=== PATIENT | male | born 1980 | race Caucasian/White ===

== ENCOUNTER 2017-10-02 06:07 | Day surgery (SDC) | payer OTHER, SELFPAY ==
[2017-10-02 06:33] VITALS: BP 124/73; PULSE 82; RESP 16; TEMP 37; O2SAT 99; BMI 31.0
--- NOTE | 2017-10-02 07:37 | PCM.HP.STD ---
Problem List (1) Personal history of colonic polyps Status: Acute History of Present Illness Date of Admission: 10/02/17 The patient is a 37 year old M with past medical history of colon polyps. I saw him on 09/23/2014 and perform a colonoscopy on him. He was noted to have several polyps located throughout the colon a 10 mm one at the cecum 8 mm one in the sigmoid and a 3 mm colon polyp since then he has not had any further problems. Past Medical History Past Medical History (Chronic Problems): Chronic Problems (Last Reviewed 08/28/17 @ 07:54 by Asher Khan MD) Chronic abdominal pain (Chronic) Allergies No Known Allergies Allergy (Verified 08/28/17 07:50) Home Medications: Ambulatory Orders Medication Instructions Recorded ranitidine 300 mg tablet 300 mg PO QHS 08/28/17 Surgical History: appendectomy, cholecystectomy, herniorrhaphy Psychiatric History: No pertinent psych hx Smoking Status: Never smoker - *Family History Maternal History Items: Heart Disease Review of Systems Constitutional: Denies: Chills, Fever, Weight Change Eyes: Denies: Blurred vision, Pain, Redness, Vision Change HEENT: Denies: Dysphasia, Ear Pain, Eye Pain, Head Aches, Hearing Changes, Sore Throat Cardiovascular: Denies: Chest Pain, Chest Pressure, Chest Tightness, Palpitations Respiratory: Denies: Cough, Hemoptysis, Shortness of breath at rest, Shortness of breath upon exertion, Wheezing Gastrointestinal: Denies: Abdominal Pain, Constipation, Diarrhea, Hematemesis, Nausea, Melena, Vomiting Genitourinary: Denies: Dysuria, Frequency, Hematuria, Urgency Musculoskeletal: Denies: Joint Pain Skin: Denies: Lesions, Rash, Wounds Neurological: Denies: Change in Speech, Confusion, Numbness, Tingling, Seizures Psychiatric: Denies: Anxiety, Depression Endocrine: Denies: Heat/ Cold Intolerance, Polydipsia, Polyuria Hematologic/ Lymphatic: Denies: Adenopathy, Easy Bruising VTE Information - Inpt Only VTE Present on Admission: No VTE Mechan Device Prophylaxis: None VTE Pharm Prophylaxis ordered?: No Reason prophylaxis not ordered:: Treatment Not Indicated Patient Problems: Active and Suspected Problems (Last Reviewed 08/28/17 @ 07:54 by Asher Khan MD) Personal history of colonic polyps (Acute) - Physical Exam Lungs: Clear to auscultation Cardiovascular: Regular rate, Regular Rhythm, No murmurs Abdomen: Bowel Sounds Present, Soft, Non Tender, Non-Distended Vital Signs Temp Pulse Resp BP Pulse Ox 98.6 F 82 16 124/73 H 99 10/02/17 06:33 10/02/17 06:33 10/02/17 06:33 10/02/17 06:33 10/02/17 06:33 Oxygen Delivery Method Room Air Weight: 228 lb 13.437 oz Body Mass Index (BMI) 31.0 Assessment/Plan Active and Suspected Problems (Last Reviewed 08/28/17 @ 07:54 by Asher Khan MD) Personal history of colonic polyps (Acute) The plan is to perform a colonoscopy on him.
[2017-10-02 07:40] VITALS: BP 117/70; BP 123/74; PULSE 77; RESP 16; TEMP 36.2; O2SAT 94
--- NOTE | 2017-10-02 07:40 | PCM.OPRPT ---
Problem List (1) Personal history of colonic polyps Status: Acute Report of Operation Date of Procedure: 10/02/17 Pre-Operative Diagnosis: z86.010 personal history of colonic polyps Post-Operative Diagnosis: Same Surgery/Procedure Performed:: [id number] colonoscopy Type of Anesthesia:: MAC Anesthesiologist: Fernando Mcgraw Description of Procedure: Patient was brought into the endoscopy suite and placed in the left lateral decubitus position. He was given graded anesthesia. Colonoscope was inserted into the rectum and directed through the sigmoid colon, descending colon, transverse colon, ascending colon, to the cecum. Operative findings: 1. Cecum: Normal appearance no mass lesions normal ileocecal valve. 2. Ascending colon: Normal appearance no mass lesions 3. Transverse colon: Normal appearance no mass lesions. 4. Descending colon: Normal appearance no mass lesions. 5. Sigmoid colon: Normal appearance no mass lesions. 6. Rectum: Normal appearance no mass lesions retroflexion showed a few internal hemorrhoids. Scope was withdrawn digital rectal exam was performed showing a smooth prostate with no nodules and no masses within the anus. Patient will need to have another colonoscopy in 10 years.
--- NOTE | 2017-10-02 07:44 | OP.PCM_ITS ---
Problem List (1) Personal history of colonic polyps Status: Acute Report of Operation Date of Procedure: 10/02/17 Pre-Operative Diagnosis: z86.010 personal history of colonic polyps Post-Operative Diagnosis: Same Surgery/Procedure Performed:: [id number] colonoscopy Type of Anesthesia:: MAC Anesthesiologist: Fernando Mcgraw Description of Procedure: Patient was brought into the endoscopy suite and placed in the left lateral decubitus position. He was given graded anesthesia. Colonoscope was inserted into the rectum and directed through the sigmoid colon, descending colon, transverse colon, ascending colon, to the cecum. Operative findings: 1. Cecum: Normal appearance no mass lesions normal ileocecal valve. 2. Ascending colon: Normal appearance no mass lesions 3. Transverse colon: Normal appearance no mass lesions. 4. Descending colon: Normal appearance no mass lesions. 5. Sigmoid colon: Normal appearance no mass lesions. 6. Rectum: Normal appearance no mass lesions retroflexion showed a few internal hemorrhoids. Scope was withdrawn digital rectal exam was performed showing a smooth prostate with no nodules and no masses within the anus. Patient will need to have another colonoscopy in 10 years.
[2017-10-02 07:45] VITALS: BP 111/75; BP 123/74; PULSE 73; RESP 18; O2SAT 95
[2017-10-02 07:50] VITALS: BP 108/73; BP 123/74; PULSE 71; RESP 16; O2SAT 94
[2017-10-02 07:56] VITALS: BP 106/78; BP 123/74; PULSE 68; RESP 16; TEMP 36.9; O2SAT 95
[2017-10-02 08:17] VITALS: BP 123/74
== END 2017-10-02 08:18 | disposition home or self-care (01) ==
LOC: EN 06:07 → AC 06:30
PROVIDERS: Family Provider Family Medicine; PCP Family Medicine; Visit Provider Surgery
PROC: 0DJD8ZZ Inspection of Lower Intestinal Tract, Via Natural or Artificial Opening Endoscopic (ICD-10-PCS; CPT 45378; principal; 2017-10-02 07:25)
DX: Z12.11 Encounter for screening for malignant neoplasm of colon (principal); K64.8 Other hemorrhoids; R10.9 Unspecified abdominal pain; G89.29 Other chronic pain; K21.9 Gastro-esophageal reflux disease without esophagitis; Z79.899 Other long term (current) drug therapy; Z86.010 Personal history of colon polyps; Z90.49 Acquired absence of other specified parts of digestive tract
CPT/HCPCS: 45378; J7120

== ENCOUNTER 2018-06-12 15:46 | Emergency (ER) | payer OTHER, SELFPAY ==
[2018-06-12 15:47] VITALS: BP 134/96; PULSE 84; RESP 16; TEMP 36.7; O2SAT 98; BMI 32.8
--- NOTE | 2018-06-12 15:57 | RAD_ITS ---
STUDY: X-RAY CHEST REASON FOR EXAM: Male, 38 years old. Chest/epigastric pain x 1 week. TECHNIQUE: AP portable upright view of the chest on 2 films. COMPARISON: Portable AP upright chest x-ray April 03, 2016. FINDINGS: The lungs are clear and expanded. There is no demonstrated pleural abnormality. Normal size heart. Normal mediastinum and christiano. Normal visualized pulmonary arteries. Normal visualized aortic arch and descending thoracic aorta. Normal visualized thoracic spine. Normal visualized ribs, clavicles, and shoulders. There is no demonstrated abnormality of the visualized soft tissue structures of the upper abdomen. RAD/Chest 1 View (Portable) IMPRESSION: Normal x-ray examination of the chest. Electronically Signed: Jose Enrique Pappas MD at 16:16 EST , Service support ,
--- NOTE | 2018-06-12 15:57 | EKG12_ITS ---
Test Reason : CP Blood Pressure : / mmHG Vent. Rate : 089 BPM Atrial Rate : 089 BPM P-R Int : 156 ms QRS Dur : 100 ms QT Int : 368 ms P-R-T Axes : 039 028 021 degrees QTc Int : 447 ms Normal sinus rhythm Normal ECG Confirmed by TONYA ECHEVARRIA MD ([id number]), development editor BUSTER PABON ([id number]) on 06/15/2018 1:42:45 PM Referred By: SERGEY Confirmed By:TONYA ECHEVARRIA MD
--- NOTE | 2018-06-12 16:09 | ED.DCSUM_ITS ---
- ER Visit Summary Date of Service: 06/12/18 Chief Complaint: Chest pain, indigestion History of Present Illness: The patient is a 38 M with history of paroxysmal atrial fibrillation presents to the emergency department with indigestion. Patient states he has been having indigestion for the past 5 days. He states his been rather constant. He states that he was out hunting over the weekend with just would not go away. He called his primary care physician. He states because of his history, his family physician told to come in for cardiac rule out. He denies any history of coronary vascular disease. He denies any exertional symptoms. He said no dyspnea. The pain does not radiate into his neck or his arm. Physical Examination: Vital signs reviewed General: Well-nourished, well-developed Head: Normocephalic, atraumatic Eyes: Pupils equal and reactive, extraocular muscles intact Neck, supple, no lymphadenopathy Heart: Regular rate and rhythm Respiratory: No distress, clear bilaterally Abdomen: Soft, nontender, nondistended, no peritoneal signs Back: Nontender Extremities: Nontender, no edema, no cords Skin: Normal color no rash Neuro: Alert and oriented, no focal or lateralizing deficits Test Results: [] Emergency Department Course and Treatment: EKG was obtained on patient arrival. It shows sinus rhythm without acute ischemia. His old EKG was atrial fibrillation with RVR. Patient was kept on a monitor. He had no dysrhythmia. He was given aspirin in the GI cocktail. He had resolution of his substernal pain. His pain is not radiating. He really has no risk factor for coronary vascular disease. He is a constant pain for 5 days. His cardiac enzymes are normal. The patient is already scheduled for an outpatient stress test and Holter monitor. I do not feel that admission is necessary given his lack of symptoms and low heart score. He is comfortable with this plan of care and will be discharged home. Treatment Plan: [] Disposition: Discharge Impression: 1. Chest pain This note was generated with [employer] dictation software. It may contain incorrect words, spelling, and punctuation that were not noted in review of the chart prior to signing ED Disposition - Plan for ED Patient: Chief Complaint: Chest Pain Instructions: ED Chest Pain NonCardiac Referrals: Yobani Rosario MD [Primary Care Provider] -
[2018-06-12 16:11] VITALS: O2SAT 97
[2018-06-12] MEDS: Aspirin 81 MG TAB.CHEW 324 MG PO (16:26)
[2018-06-12] MEDS: Mag Hydrox/Al Hydrox/Simeth 30 ML UDC PO (16:26)
[2018-06-12] MEDS: 0.9% Normal Saline 1,000 ML 150 ML IV (16:26)
[2018-06-12 16:42] LABS: Absolute Lymphocyte Count 2.23 X10^3/ul (0.83-4.51); Absolute Neutrophil Count 4.5 X10^3/uL (2.0-7.7); Anion Gap 8 (5-15); BUN 12 mg/dL (7-18); BUN/Creat Ratio 11.7 RATIO (10-20); Basophil# 0.02 X10^3/uL; Basophil% 0.3 % (0-1); Calcium,Total 8.8 mg/dL (8.5-10.1); Chloride 108 mmol/L (98-107); Creatinine, Serum 1.03 mg/dL (0.70-1.30); EST Glomerular Filtration Rate 86 mL/min (>60); Eosinophil# 0.12 X10^3/uL; Eosinophils% 1.6 % (0-5); Est Glom Filt Rate - Afr Amer 104 mL/min (>60); Estimated Creatinine Clearance 106.73 ml/min; Glucose 91 mg/dL (74-106); Hematocrit 46.6 % (40-54); Hemoglobin 15.9 g/dl (13.0-16.5); Lymphocyte # 2.23 X10^3/ul (4.0); Lymphocyte % 30.1 % (19-41); Mean Corp Hgb Conc 34.1 g/gl (32-36); Mean Corpuscular Hgb 29.1 pg (27.0-32.0); Mean Corpuscular Volume 85.2 fL (80-94); Mean Platelet Vol. 9.3 fl (6.2-12.0); Monocyte# 0.51 X10^3/uL; Monocyte% 6.9 % (0-10); Neutrophil # 4.51 X10^3/uL (2.7-7.7); Platelet Count 248 K/mm3 (150-450); Potassium 3.3 mmol/L (3.5-5.1); RBC Distribution Width CV 12.2 % (11.6-14.6); Red Blood Count 5.47 M/mm3 (4.6-6.2); Sodium Level 141 mmol/L (136-145); White Blood Count 7.4 K/mm3 (4.4-11.0)
[2018-06-12 16:45] LABS: POSITIVE COUNT NO; POSITIVE DIFFERENTIAL NO; POSITIVE MORPHOLOGY NO
[2018-06-12 17:27] VITALS: BP 128/84; PULSE 83; RESP 17; O2SAT 97
[2018-06-12 18:04] VITALS: BP 140/97; PULSE 77; RESP 16; O2SAT 95
--- OUTSIDE RECORDS SUMMARY | 2018-09-14 05:04 | XMS RPT_ITS ---
:1980 Author Organization [facility] Care Team Providers Name Role Phone HERNÁN KANG ([employer]) Attending Unavailable CEBUL III, SAVAGE A Attending Unavailable CRICKET HARRIS (PA) Attending Unavailable KARISSA SALES Attending Unavailable HERNÁN KANG ([employer]) Referring Unavailable ОЛЬГА SAN (IN TUBE CONVERSION TECHNICIAN) Attending Unavailable KARISSA SALES Referring Unavailable Jaclyn POSEY (PA-C) Referring Unavailable CRICKET HARRIS (PA) Attending Unavailable ОЛЬГА SAN (IN TUBE CONVERSION TECHNICIAN) Attending Unavailable KARISSA SALES Attending Unavailable KARISSA SALES Referring Unavailable KARISSA SALES Attending Unavailable DOROTHY CHESTER ([employer]) Attending Unavailable KARISSA SALES Referring Unavailable KARISSA SALES Referring Unavailable Karissa Sales Primary Care Unavailable Yoshi Norman Attending Unavailable Asher Khan Attending Unavailable Karissa Sales Referring Unavailable Karissa Sales Primary Care Unavailable Asher Khan Attending Unavailable Asher Khan Referring Unavailable Karissa Sales Primary Care Unavailable Asher Khan Attending Unavailable Asher Khan Referring Unavailable Karissa Sales Primary Care Unavailable Asher Khan Consulting Unavailable PROBLEMS PROBLEMS DATE TYPE CONDITION / CODE ATTENDING STATUS SOURCE 06/25/2018 Active Tachycardia, NA Active [facility] unspecified / Other [place] R00.0(ICD-10) Repository 06/25/2018 Active 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 [place] block / Repository I45.10(ICD-10) 10/09/2016 Active Hyperlipidemia, NA Active [facility] unspecified / Main [place] E78.5(ICD-10) Repository 03/04/2016 Active Encounter for NA Active [facility] screening for Main [place] diabetes mellitus Repository / Z13.1(ICD-10) 12/12/2017 Active Other abnormal NA Active [facility] glucose / Main [place] R73.09(ICD-10) Repository 12/12/2017 Active Unspecified NA Active [facility] abdominal pain / Main [place] R10.9(ICD-10) Repository 10/30/2017 Unknown Z12.11 - Asher Khan Active [place] Encounter for Community screening for Hospital malignant Repository neoplasm of colon / Z12.11(ICD-10) 07/16/2018 Unknown Z86.010 - Asher Khan Active [place] Personal history Community of colonic polyps [facility] / Z86.010(ICD-10) Repository 08/08/2017 Active Unknown / [place], Active [facility] UNK(Unknown) HERNÁN Graves ([facility]) Main [place] Repository PROCEDURES PROCEDURES No Procedure Records FoundRESULTS RESULTS CNOV Observed: 07/16/2018 Status: COMPLETED Source: [place] 11:40 AM [facility] REPOSITORY Office Visit (FAMPWS) ASHER MCCAULEY ([id number]) 1980 M Date Time Provider Department 07/16/18 11:40 AM DOROTHY CHESTER ([facility]) MANJINDER During your visit today, we recorded the following information about you: Temperature Pulse Blood pressure Weight 97.8 degrees 92/minute 106/77 110.2 kg Dorothy Chester APRN.CNP 07/16/2018 11:50 AM Signed Chief Complaint Patient presents with: Rash: right leg - no itching, no pain , not worse or better HPI Asher Mccauley is a 38 year old male who presents here today for Above Complaints.. Patient presents to the office for complaints of a rash. Location is right lower leg. Denies any pruritus or pain. States that this was present at his last OB appointment with Dr. Sales on 06/11/2018. States that the area is no better and no worse. No drainage, erythema, fevers, chills. Area has not increased in size. Patient had been applying some lotion to it but did not see any improvement. Past medical history, appointments, medications, allergies reviewed. Previous Medical History PAST MEDICAL HISTORY Diagnosis Date - Dyslipidemia 10/09/2016 - GERD (gastroesophageal reflux disease) - Obesity - Rectal bleeding 09/23/2014 - Seasonal allergies 03/04/2016 Previous Surgical History PAST SURGICAL HISTORY Procedure Laterality Date - COLONOSCOPY 10/02/2017 Dr. Khan, repeat 10 yrs MAC - COLONS W/REM POLYP HT BX 09/23/2014 Repeat 2018 - EGD W/O OR W/BRUSH/WASH 02/04/15 EGD - LAPAROSCOPIC CHOLEYCYSTECTOMY 04/06/2016 - LAPAROSCOPY, SURGICAL, APPENDECTOMY 02/10/14 with umbilical hernia and appendix - PAST SURGICAL HISTORY OF wisdom teeth Family History FAMILY HISTORY Problem Relation Age of Onset - Asthma Mother - Allergies Mother - Breast Cancer Paternal Grandmother - Cancer Maternal Grandfather pancreatic - Cancer Maternal Grandmother pancreatic - Coronary Artery Disease No Family History - Hypertension No Family History - Hyperlipidemia No Family History Patient Allergies ALLERGIES Allergen Reactions - Clindamycin Diarrhea - Seasonal Allergies Other: See Comments Symptoms vary Current Medications Current Outpatient Prescriptions on File Prior to Visit: omeprazole (PRILOSEC) 20 mg capsule Take 1 capsule by mouth daily before breakfast. 1/2 hr before meal. hyoscyamine (LEVSIN) 0.125 mg tablet Take 1 tablet by mouth twice daily before meals. ranitidine (ZANTAC) 150 mg tablet Take 1 tablet by mouth twice daily as needed. cyclobenzaprine (FLEXERIL) 10 mg tablet Take 1 tablet by mouth three times daily as needed. naproxen (NAPROSYN) 500 mg tablet Take 1 tablet by mouth twice daily as needed (for pain/inflammation). Take with food. sucralfate (CARAFATE) 1 gram tablet Take with a swallow of water. Wait at least 30 minutes before eating/drinking. loratadine (CLARITIN) 10 mg tablet Take 1 tablet by mouth once daily. ondansetron (ZOFRAN) 8 mg tablet Take 1 tablet by mouth every 8 hours as needed. Loperamide HCl (IMODIUM A-D) 2 mg tab Take 2 tabs po x1 now and then take 1 tab po after each loose stool. No current facility-administered medications on file prior to visit. Social History Social History Marital status: Single Spouse name: Years of education: Number of children: 1 Social History Main Topics Smoking status: Never Smoker Smokeless tobacco: Never Used Alcohol use: Yes Comment: seldom Drug use: No REVIEW OF SYSTEMS: as above ? Reviewed relevant PMHx, PSHx, Social Hx, current medications and allergies. EXAM: BP 106/77 Pulse 92 Temp 36.6 ?C (97.8 ?F) (Tympanic) Wt 110.2 kg (243 lb) BMI 32.96 kg/m? General Appearance: Well appearing, alert, in no acute distress, well-hydrated, well nourished.. Skin: multiple small areas on the anterior portion of the right pike without any drainage, elevation, erythema. some lichenification present. Health Maintenance List LIPID SCREEN due on 12/12/2022 DTAP,TDAP,TD(2 - Td) due on 03/04/2026 COLORECTAL CANCER SCREENING,SEE MODIFIER due on 10/03/2027 INFLUENZA Completed Data reviewed Component Latest Ref Rng AND Units 12/12/2017 Protein, Total 6.3 - 8.0 g/dL 6.7 Albumin 3.9 - 4.9 g/dL 4.3 Calcium 8.5 - 10.2 mg/dL 9.1 Bilirubin, Total 0.2 - 1.3 mg/dL 0.9 Alkaline Phosphatase 36 - 108 U/L 59 AST 14 - 40 U/L 19 Glucose 74 - 99 mg/dL 94 BUN 9 - 24 mg/dL 15 Creatinine 0.73 - 1.22 mg/dL 1.03 Sodium 136 - 144 mmol/L 141 Potassium 3.7 - 5.1 mmol/L 4.0 Chloride 97 - 105 mmol/L 103 CO2 22 - 30 mmol/L 25 Anion Gap 9 - 18 mmol/L 13 ALT 10 - 54 U/L 16 eGFR- >60 eGFR-All Other Races . >60 Color Yellow Yellow Clarity Clear Clear Glucose, Urine Negative mg/dL Negative Bilirubin, Urine Negative Negative Ketones, Urine Negative Negative Specific [place], Ur 1.005 - 1.030 1.021 Hemoglobin/Blood,Ur Negative Negative pH, Urine 4.5 - 8.0 5.0 Protein, Urine Negative mg/dL Negative Urobilinogen Normal Normal Nitrites Negative Negative Leukest Negative Negative Comments SEE COMMENT Urine Thor Comment SEE COMMENT WBC, Urine 0 - 5 /HPF 0-5 RBC, Urine 0 - 3 /HPF 0-3 Cholesterol, Total <200 mg/dL 142 Triglyceride <150 mg/dL 136 HDL Cholesterol >39 mg/dL 35 (L) LDL Cholesterol <100 mg/dL 80 Non HDL Cholesterol <130 mg/dL 107 Fasting Time hrs 12 VLDL Cholesterol <30 mg/dL 27 TC:HDL Ratio <5.10 4.06 LDL:HDL Ratio <2.54 2.29 Hemoglobin A1C 4.3 - 5.6 % 5.4 Estimated Average Glucose mg/dL 108 Lipase 16 - 61 U/L 19 Amylase 30 - 104 U/L 44 ASSESSMENT/PLAN: 1. Eczema, unspecified type - ICD9: 692.9, ICD10: L30.9 - Topical steriod tx with Rx for steriod cream/ointment- see orders - discussed skin care of rash - follow up if symptoms persist or worsen. - TRIAMCINOLONE ACETONIDE 0.025 % TOPICAL OINTMENT Dorothy Chester APRN.[employer] Referring Provider: SELF [[id number]] Allergies As of Date: 07/16/2018 Noted Allergy Reaction CLINDAMYCIN 10/07/2017 6 - Diarrhea SEASONAL ALLERGIES 03/04/2016 14 - Other: See Comments Comments: Symptoms vary Date Reviewed: 07/16/2018 Reviewed by: Shaye Prieto Transformation Coach - Fully Assessed Reason for Visit: Rash [1087] Cmt: right leg - no itching, no pain , not worse or better Primary Visit Diagnosis:Eczema, unspecified type [L30.9] Order(s):triamcinolone (KENALOG) 0.025 % ointmentApply 1 application to affected area twice daily.Disp: 15 gRfl: 1 Prescriptions as of 07/16/2018 Sig: OMEPRAZOLE 20 MG CAPSULE,THOMAS* Take 1 capsule by mouth daily* HYOSCYAMINE SULFATE 0.125 MG * Take 1 tablet by mouth twice * RANITIDINE 150 MG TABLET Take 1 tablet by mouth twice * CYCLOBENZAPRINE 10 MG TABLET Take 1 tablet by mouth three * NAPROXEN 500 MG TABLET Take 1 tablet by mouth twice * SUCRALFATE 1 GRAM TABLET Take with a swallow of water* LORATADINE 10 MG TABLET Take 1 tablet by mouth once d* ONDANSETRON HCL 8 MG TABLET Take 1 tablet by mouth every * LOPERAMIDE 2 MG TABLET Take 2 tabs po x1 now and the* TRIAMCINOLONE ACETONIDE 0.025* Apply 1 application to affect* Problem List As Of Date 07/16/2018 Noted Resolved GERD (gastroesophageal reflux disease) [K21.9] INVALID FOR* Obesity, unspecified [E66.9] INVALID FOR* Seasonal allergies [J30.2] INVALID FOR* Decreased hearing of left ear [H91.92] INVALID FOR* More... Well adult exam [Z00.00] INVALID FOR* More... Multiple lipomas [D17.9] INVALID FOR* More... Encounter for screening for diabetes mellitus [*INVALID FOR* Elevated blood-pressure reading without diagnos*INVALID FOR* Dyslipidemia [E78.5] INVALID FOR* RBBB [I45.10] INVALID FOR* Prescriptions ordered this encounter Disp Refills Start End TRIAMCINOLONE ACETONIDE 0.025 % TOPI* 15 g 1 07/16/2018 Route: TOPICAL Sig: Apply 1 application to affected area twice daily. Disposition: Return if symptoms worsen or fail to improve. Follow-up and Disposition History Recorded Encounter Status:Closed by DOROTHY CHESTER CNP on 07/16/18 PROGRESS Observed: 07/16/2018 Status: COMPLETED Source: [place] 11:39 AM [facility] REPOSITORY HNO ID: [id number] Author: Dorothy Chester Service: (none) Author Type: Nurse Practitioner Type: Progress Notes Filed: 07/16/2018 11:50 AM Note Text: Chief Complaint Patient presents with: Rash: right leg - no itching, no pain , not worse or better HPI Asehr Mccauley is a 38 year old male who presents here today for Above Complaints.. Patient presents to the office for complaints of a rash. Location is right lower leg. Denies any pruritus or pain. States that this was present at his last OB appointment with Dr. Sales on 06/11/2018. States that the area is no better and no worse. No drainage, erythema, fevers, chills. Area has not increased in size. Patient had been applying some lotion to it but did not see any improvement. Past medical history, appointments, medications, allergies reviewed. Previous Medical History PAST MEDICAL HISTORY Diagnosis Date - Dyslipidemia 10/09/2016 - GERD (gastroesophageal reflux disease) - Obesity - Rectal bleeding 09/23/2014 - Seasonal allergies 03/04/2016 Previous Surgical History PAST SURGICAL HISTORY Procedure Laterality Date - COLONOSCOPY 10/02/2017 Dr. Khan, repeat 10 yrs MAC - COLONS W/REM POLYP HT BX 09/23/2014 Repeat 2017 - EGD W/O OR W/BRUSH/WASH 02/04/15 EGD - LAPAROSCOPIC CHOLEYCYSTECTOMY 04/06/2016 - LAPAROSCOPY, SURGICAL, APPENDECTOMY 02/10/14 with umbilical hernia and appendix - PAST SURGICAL HISTORY OF wisdom teeth Family History FAMILY HISTORY Problem Relation Age of Onset - Asthma Mother - Allergies Mother - Breast Cancer Paternal Grandmother - Cancer Maternal Grandfather pancreatic - Cancer Maternal Grandmother pancreatic - Coronary Artery Disease No Family History - Hypertension No Family History - Hyperlipidemia No Family History Patient Allergies ALLERGIES Allergen Reactions - Clindamycin Diarrhea - Seasonal Allergies Other: See Comments Symptoms vary Current Medications Current Outpatient Prescriptions on File Prior to Visit: omeprazole (PRILOSEC) 20 mg capsule Take 1 capsule by mouth daily before breakfast. 1/2 hr before meal. hyoscyamine (LEVSIN) 0.125 mg tablet Take 1 tablet by mouth twice daily before meals. ranitidine (ZANTAC) 150 mg tablet Take 1 tablet by mouth twice daily as needed. cyclobenzaprine (FLEXERIL) 10 mg tablet Take 1 tablet by mouth three times daily as needed. naproxen (NAPROSYN) 500 mg tablet Take 1 tablet by mouth twice daily as needed (for pain/inflammation). Take with food. sucralfate (CARAFATE) 1 gram tablet Take with a swallow of water. Wait at least 30 minutes before eating/drinking. loratadine (CLARITIN) 10 mg tablet Take 1 tablet by mouth once daily. ondansetron (ZOFRAN) 8 mg tablet Take 1 tablet by mouth every 8 hours as needed. Loperamide HCl (IMODIUM A-D) 2 mg tab Take 2 tabs po x1 now and then take 1 tab po after each loose stool. No current facility-administered medications on file prior to visit. Social History Social History Marital status: Single Spouse name: Years of education: Number of children: 1 Social History Main Topics Smoking status: Never Smoker Smokeless tobacco: Never Used Alcohol use: Yes Comment: seldom Drug use: No REVIEW OF SYSTEMS: as above ? Reviewed relevant PMHx, PSHx, Social Hx, current medications and allergies. EXAM: BP 106/77 Pulse 92 Temp 36.6 ?C (97.8 ?F) (Tympanic) Wt 110.2 kg (243 lb) BMI 32.96 kg/m? General Appearance: Well appearing, alert, in no acute distress, well-hydrated, well nourished.. Skin: multiple small areas on the anterior portion of the right pike without any drainage, elevation, erythema. some lichenification present. Health Maintenance List LIPID SCREEN due on 12/12/2022 DTAP,TDAP,TD(2 - Td) due on 03/04/2026 COLORECTAL CANCER SCREENING,SEE MODIFIER due on 10/03/2027 INFLUENZA Completed Data reviewed Component Latest Ref Rng AND Units 12/12/2017 Protein, Total 6.3 - 8.0 g/dL 6.7 Albumin 3.9 - 4.9 g/dL 4.3 Calcium 8.5 - 10.2 mg/dL 9.1 Bilirubin, Total 0.2 - 1.3 mg/dL 0.9 Alkaline Phosphatase 36 - 108 U/L 59 AST 14 - 40 U/L 19 Glucose 74 - 99 mg/dL 94 BUN 9 - 24 mg/dL 15 Creatinine 0.73 - 1.22 mg/dL 1.03 Sodium 136 - 144 mmol/L 141 Potassium 3.7 - 5.1 mmol/L 4.0 Chloride 97 - 105 mmol/L 103 CO2 22 - 30 mmol/L 25 Anion Gap 9 - 18 mmol/L 13 ALT 10 - 54 U/L 16 eGFR- >60 eGFR-All Other Races . >60 Color Yellow Yellow Clarity Clear Clear Glucose, Urine Negative mg/dL Negative Bilirubin, Urine Negative Negative Ketones, Urine Negative Negative Specific [place], Ur 1.005 - 1.030 1.021 Hemoglobin/Blood,Ur Negative Negative pH, Urine 4.5 - 8.0 5.0 Protein, Urine Negative mg/dL Negative Urobilinogen Normal Normal Nitrites Negative Negative Leukest Negative Negative Comments SEE COMMENT Urine Thor Comment SEE COMMENT WBC, Urine 0 - 5 /HPF 0-5 RBC, Urine 0 - 3 /HPF 0-3 Cholesterol, Total <200 mg/dL 142 Triglyceride <150 mg/dL 136 HDL Cholesterol >39 mg/dL 35 (L) LDL Cholesterol <100 mg/dL 80 Non HDL Cholesterol <130 mg/dL 107 Fasting Time hrs 12 VLDL Cholesterol <30 mg/dL 27 TC:HDL Ratio <5.10 4.06 LDL:HDL Ratio <2.54 2.29 Hemoglobin A1C 4.3 - 5.6 % 5.4 Estimated Average Glucose mg/dL 108 Lipase 16 - 61 U/L 19 Amylase 30 - 104 U/L 44 ASSESSMENT/PLAN: 1. Eczema, unspecified type - ICD9: 692.9, ICD10: L30.9 - Topical steriod tx with Rx for steriod cream/ointment- see orders - discussed skin care of rash - follow up if symptoms persist or worsen. - TRIAMCINOLONE ACETONIDE 0.025 % TOPICAL OINTMENT Dorothy Chester APRN.[employer] STRESS TEST (EXERCISE) Observed: 06/25/2018 Status: F Source: [facility] 12:29 PM CLINIC OTHER CAMPUS REPOSITORY NAME : ASHER MCCAULEY PID : [id number] : 1980 Gender : Male Race : ORD : [id number] Procedure Date : Jun 25 2018 12:29:52 Edit Date : Jun 28 2018 14:53:37 Protocol Name : JORDAN Time In Exercise Phase : 00:09:00 Max. Systolic BP : 178 mmHg Max Diastolic BP : 86 mmHg Max Heart Rate : 162 BPM Max Predicted Heart Rate : 182 BPM Recovery ECG Response (OLD) : Reason For Termination : Target Heart Rate Achieved Test Reason : PAF Location :[facility] Overread By : YOSHI ROBERTS D.O. Edited By : Torrie Esteves Referred By : KARISSA SALES Acquired by : EMILEE CROUCH PROCEDURE Observed: 06/25/2018 Status: COMPLETED Source: [place] 12:00 AM [facility] REPOSITORY O ID: [id number] Author: Yoshi Roberts Service: Clinical Cardiology Author Type: Physician Type: Procedures Filed: 06/28/2018 10:59 AM Note Text: [facility]- Stress Test ASHER MCCAULEY : 1980 AGE: 38 SEX: M ACCTNUM: [id number] [facility] SVC: LOCATION: ATTENDING PHYSICIAN: DATE OF STUDY: 06/25/2018 REPORT: Stress test. INDICATIONS: History of hyperlipidemia and atrial fibrillation. RESULTS: 1. Good functional capacity achieving 9 minutes Jordan protocol or 10 METS. 2. Peak heart rate was 162 or 89% of age predicted max heart rate. 3. Study was terminated due to leg fatigue; however, no chest pain. 4. Poor blood pressure response resting 128/96 with a peak of 178/86. 5. There is no significant ST-segment changes. 6. There is no atrial fibrillation or exercise-induced arrhythmia. CONCLUSION: This is a normal maximal treadmill stress test with no evidence of ischemic EKG changes nor evidence of exercise-induced dysrhythmia. Yoshi Roberts D.O., [facility] Cardiovascular Medicine MA:[id number] /[id number] [facility] Observed: 06/22/2018 Status: COMPLETED Source: [place] 12:00 AM [facility] REPOSITORY Telephone ([facility]) ASHER MCCAULEY ([id number]) 1980 M Date Time Provider Department 06/22/18 NERISSA DELEON) [facility] During your visit today, we recorded the following information about you: Nerissa Deleon RN, RN 06/22/2018 9:50 AM Signed Spoke with patient regarding reminder for stress test on Monday and given instructions Allergies As of Date: 06/22/2018 Noted Allergy Reaction CLINDAMYCIN 10/07/2017 6 - Diarrhea SEASONAL ALLERGIES 03/04/2016 14 - Other: See Comments Comments: Symptoms vary Date Reviewed: 06/13/2018 Reviewed by: Karissa Sales - Fully Assessed Reason for Visit: Reminder Call [[id number]] Prescriptions as of 06/22/2018 Sig: CYCLOBENZAPRINE 10 MG TABLET Take 1 tablet by mouth three * Patient not taking: Reported on 06/13/2018 HYOSCYAMINE SULFATE 0.125 MG * Take 1 tablet by mouth twice * LOPERAMIDE 2 MG TABLET Take 2 tabs po x1 now and the* LORATADINE 10 MG TABLET Take 1 tablet by mouth once d* Patient not taking: Reported on 06/13/2018 NAPROXEN 500 MG TABLET Take 1 tablet by mouth twice * Patient not taking: Reported on 06/13/2018 OMEPRAZOLE 20 MG CAPSULE,THOMAS* Take 1 capsule by mouth daily* ONDANSETRON HCL 8 MG TABLET Take 1 tablet by mouth every * Patient not taking: Reported on 06/13/2018 RANITIDINE 150 MG TABLET Take 1 tablet by mouth twice * Patient not taking: Reported on 06/13/2018 SUCRALFATE 1 GRAM TABLET Take with a swallow of water* Problem List As Of Date 06/22/2018 Noted Resolved GERD (gastroesophageal reflux disease) [K21.9] INVALID FOR* Obesity, unspecified [E66.9] INVALID FOR* Seasonal allergies [J30.2] INVALID FOR* Decreased hearing of left ear [H91.92] INVALID FOR* More... Well adult exam [Z00.00] INVALID FOR* More... Multiple lipomas [D17.9] INVALID FOR* More... Encounter for screening for diabetes mellitus [*INVALID FOR* Elevated blood-pressure reading without diagnos*INVALID FOR* Dyslipidemia [E78.5] INVALID FOR* RBBB [I45.10] INVALID FOR* Encounter Status:Closed by NERISSA DELEON on 06/22/18 12 LEAD ELECTROCARDIOGRAM Observed: 06/15/2018 Status: F Source: [place] 1:43 PM [facility] REPOSITORY [facility] Cardiovascular Services [address] [place] [address] 12 Lead EKG 06/12/18 1603 MR#: [id number] Acct: [id number] Name: ASHER MCCAULEY Rep #: [id number] : 1980 38 From: Feng Wray MD Attending Dr: Status: DEP ER Ordering Dr: Yoshi Norman MD Date: 06/12/18 Location: ED Sex: M C Admitted: Test Reason : CP Blood Pressure : / mmHG Vent. Rate : 089 BPM Atrial Rate : 089 BPM P-R Int : 156 ms QRS Dur : 100 ms QT Int : 368 ms P-R-T Axes : 039 028 021 degrees QTc Int : 447 ms Normal sinus rhythm Normal ECG Confirmed by SWATHI GUAMAN, FENG ([id number]), features editor BUSTER PABON ([id number]) on 06/15/2018 1:42:45 PM Referred By: Confirmed By:FENG WRAY MD 06/15/18 1342 Date Feng Wray MD CC: Karissa Sales MD; Yoshi Norman MD Signed PROGRESS Observed: 06/13/2018 Status: COMPLETED Source: [place] 9:01 AM [facility] REPOSITORY [facility] ID: [id number] Author: Karissa Sales Service: (none) Author Type: Physician Type: Progress Notes Filed: 06/13/2018 1:15 PM Note Text: Chief Complaint Patient presents with: ER F/U: Seen at [facility] ER yesterday for chest pain HPI Asher Mccauley is a 38 year old male who presents here today for Above Complaints.. Patient was seen in the office Monday and discussed the symptoms he had bene having. Has orders to get set up for stress test and halter monitor. Yesterday at work was having the symptoms and just seemed slightly more intense. No radiation, nausea, diaphoresis or shortness of breath. Had Labs, EKG and x-ray completed and told every thing checked out ok. No new stressors. Lives with girlfriend and their 3 yr daughter and things there are good. No major work issues. Works for [employer]. Past medical history, appointments, medications, allergies reviewed. Previous Medical History PAST MEDICAL HISTORY Diagnosis Date - Dyslipidemia 10/09/2016 - GERD (gastroesophageal reflux disease) - Obesity - Rectal bleeding 09/23/2014 - Seasonal allergies 03/04/2016 Previous Surgical History PAST SURGICAL HISTORY Procedure Laterality Date - COLONOSCOPY 10/02/2017 Dr. Khan, repeat 10 yrs MAC - COLONS W/REM POLYP HT BX 09/23/2014 Repeat 2018 - EGD W/O OR W/BRUSH/WASH 02/04/15 EGD - LAPAROSCOPIC CHOLEYCYSTECTOMY 04/06/2016 - LAPAROSCOPY, SURGICAL, APPENDECTOMY 02/10/14 with umbilical hernia and appendix - PAST SURGICAL HISTORY OF wisdom teeth Family History FAMILY HISTORY Problem Relation Age of Onset - Asthma Mother - Allergies Mother - Breast Cancer Paternal Grandmother - Cancer Maternal Grandfather pancreatic - Cancer Maternal Grandmother pancreatic - Coronary Artery Disease No Family History - Hypertension No Family History - Hyperlipidemia No Family History Patient Allergies ALLERGIES Allergen Reactions - Clindamycin Diarrhea - Seasonal Allergies Other: See Comments Symptoms vary Current Medications Current Outpatient Prescriptions on File Prior to Visit: hyoscyamine (LEVSIN) 0.125 mg tablet Take 1 tablet by mouth twice daily before meals. omeprazole (PRILOSEC) 20 mg capsule Take 1 capsule by mouth daily before breakfast. 1/2 hr before meal. sucralfate (CARAFATE) 1 gram tablet Take with a swallow of water. Wait at least 30 minutes before eating/drinking. cyclobenzaprine (FLEXERIL) 10 mg tablet Take 1 tablet by mouth three times daily as needed. (Patient not taking: Reported on 06/13/2018 ) Loperamide HCl (IMODIUM A-D) 2 mg tab Take 2 tabs po x1 now and then take 1 tab po after each loose stool. loratadine (CLARITIN) 10 mg tablet Take 1 tablet by mouth once daily. (Patient not taking: Reported on 06/13/2018 ) naproxen (NAPROSYN) 500 mg tablet Take 1 tablet by mouth twice daily as needed (for pain/inflammation). Take with food. (Patient not taking: Reported on 06/13/2018 ) ondansetron (ZOFRAN) 8 mg tablet Take 1 tablet by mouth every 8 hours as needed. (Patient not taking: Reported on 06/13/2018 ) ranitidine (ZANTAC) 150 mg tablet Take 1 tablet by mouth twice daily as needed. (Patient not taking: Reported on 06/13/2018 ) No current facility-administered medications on file prior to visit. Social History Social History Marital status: Single Spouse name: Years of education: Number of children: 1 Social History Main Topics Smoking status: Never Smoker Smokeless tobacco: Never Used Alcohol use: Yes Comment: seldom Drug use: No Review of Symptoms REVIEW OF SYSTEMS See HPI EXAM: BP 132/92 (BP Site: Left Arm, BP Position: Sitting, BP Cuff Size: Large Adult) Pulse 76 Temp 36.7 ?C (98 ?F) (Tympanic) Resp 16 Wt 108.9 kg (240 lb) BMI 32.55 kg/m? General Appearance: Well appearing, alert, in no acute distress, well-hydrated, well nourished.. Lungs: lungs clear to auscultation. No wheezing, rhonchi, rales. Heart: RRR without murmur, gallop, or rubs. No ectopy. Abdomen: Normal abdominal exam, Abdomen soft, non-tender. Bowel sounds normal. No masses, organomegaly. Musculoskeletal: No joint swelling, deformity, or tenderness, and no chest wall pain with palpation or compression of the sides. . Health Maintenance List LIPID SCREEN due on 12/12/2022 DTAP,TDAP,TD(2 - Td) due on 03/04/2026 COLORECTAL CANCER SCREENING,SEE MODIFIER due on 10/03/2027 INFLUENZA Completed Data reviewed ER report and labs. A/P ASSESSMENT/PLAN: 1. Atypical chest pain - ICD9: 786.59, ICD10: R07.89 - Patient to get get stress test and halter in near future. - Patient giving guidelines on things to monitor for and reason to return to ER. will write off work as advise by the ER for yesterday through 06/19/2018 and RTW 06/20/2018. Patient will need to bring in [employer] forms to be completed. Karissa Sales MD CNOV Observed: 06/13/2018 Status: COMPLETED Source: [place] 8:40 AM [facility] REPOSITORY [facility] ASH[facility]CCAU[facility] ([id number]) 1980 M Date Time Provider Department 06/13/18 8:40 AM KARISSA SALES During your visit today, we recorded the following information about you: Temperature Pulse Respiration Blood pressure 98 degrees 76/minute 16/minute 132/92 Weight 108.9 kg Karissa Sales MD 06/13/2018 1:15 PM Signed Chief Complaint Patient presents with: ER F/U: Seen at [facility] ER yesterday for chest pain HPI Asher Mccauley is a 38 year old male who presents here today for Above Complaints.. Patient was seen in the office Monday and discussed the symptoms he had bene having. Has orders to get set up for stress test and halter monitor. Yesterday at work was having the symptoms and just seemed slightly more intense. No radiation, nausea, diaphoresis or shortness of breath. Had Labs, EKG and x-ray completed and told every thing checked out ok. No new stressors. Lives with girlfriend and their 3 yr daughter and things there are good. No major work issues. Works for [employer]. Past medical history, appointments, medications, allergies reviewed. Previous Medical History PAST MEDICAL HISTORY Diagnosis Date - Dyslipidemia 10/09/2016 - GERD (gastroesophageal reflux disease) - Obesity - Rectal bleeding 09/23/2014 - Seasonal allergies 03/04/2016 Previous Surgical History PAST SURGICAL HISTORY Procedure Laterality Date - COLONOSCOPY 10/02/2017 Dr. Khan, repeat 10 yrs MAC - COLONS W/REM POLYP HT BX 09/23/2014 Repeat 2017 - EGD W/O OR W/BRUSH/WASH 02/04/15 EGD - LAPAROSCOPIC CHOLEYCYSTECTOMY 04/06/2016 - LAPAROSCOPY, SURGICAL, APPENDECTOMY 02/10/14 with umbilical hernia and appendix - PAST SURGICAL HISTORY OF wisdom teeth Family History FAMILY HISTORY Problem Relation Age of Onset - Asthma Mother - Allergies Mother - Breast Cancer Paternal Grandmother - Cancer Maternal Grandfather pancreatic - Cancer Maternal Grandmother pancreatic - Coronary Artery Disease No Family History - Hypertension No Family History - Hyperlipidemia No Family History Patient Allergies ALLERGIES Allergen Reactions - Clindamycin Diarrhea - Seasonal Allergies Other: See Comments Symptoms vary Current Medications Current Outpatient Prescriptions on File Prior to Visit: hyoscyamine (LEVSIN) 0.125 mg tablet Take 1 tablet by mouth twice daily before meals. omeprazole (PRILOSEC) 20 mg capsule Take 1 capsule by mouth daily before breakfast. 1/2 hr before meal. sucralfate (CARAFATE) 1 gram tablet Take with a swallow of water. Wait at least 30 minutes before eating/drinking. cyclobenzaprine (FLEXERIL) 10 mg tablet Take 1 tablet by mouth three times daily as needed. (Patient not taking: Reported on 06/13/2018 ) Loperamide HCl (IMODIUM A-D) 2 mg tab Take 2 tabs po x1 now and then take 1 tab po after each loose stool. loratadine (CLARITIN) 10 mg tablet Take 1 tablet by mouth once daily. (Patient not taking: Reported on 06/13/2018 ) naproxen (NAPROSYN) 500 mg tablet Take 1 tablet by mouth twice daily as needed (for pain/inflammation). Take with food. (Patient not taking: Reported on 06/13/2018 ) ondansetron (ZOFRAN) 8 mg tablet Take 1 tablet by mouth every 8 hours as needed. (Patient not taking: Reported on 06/13/2018 ) ranitidine (ZANTAC) 150 mg tablet Take 1 tablet by mouth twice daily as needed. (Patient not taking: Reported on 06/13/2018 ) No current facility-administered medications on file prior to visit. Social History Social History Marital status: Single Spouse name: Years of education: Number of children: 1 Social History Main Topics Smoking status: Never Smoker Smokeless tobacco: Never Used Alcohol use: Yes Comment: seldom Drug use: No Review of Symptoms REVIEW OF SYSTEMS See HPI EXAM: BP 132/92 (BP Site: Left Arm, BP Position: Sitting, BP Cuff Size: Large Adult) Pulse 76 Temp 36.7 ?C (98 ?F) (Tympanic) Resp 16 Wt 108.9 kg (240 lb) BMI 32.55 kg/m? General Appearance: Well appearing, alert, in no acute distress, well-hydrated, well nourished.. Lungs: lungs clear to auscultation. No wheezing, rhonchi, rales. Heart: RRR without murmur, gallop, or rubs. No ectopy. Abdomen: Normal abdominal exam, Abdomen soft, non-tender. Bowel sounds normal. No masses, organomegaly. Musculoskeletal: No joint swelling, deformity, or tenderness, and no chest wall pain with palpation or compression of the sides. . Health Maintenance List LIPID SCREEN due on 12/12/2022 DTAP,TDAP,TD(2 - Td) due on 03/04/2026 COLORECTAL CANCER SCREENING,SEE MODIFIER due on 10/03/2027 INFLUENZA Completed Data reviewed ER report and labs. A/P ASSESSMENT/PLAN: 1. Atypical chest pain - ICD9: 786.59, ICD10: R07.89 - Patient to get get stress test and halter in near future. - Patient giving guidelines on things to monitor for and reason to return to ER. will write off work as advise by the ER for yesterday through 06/19/2018 and RTW 06/20/2018. Patient will need to bring in [employer] forms to be completed. Karissa Sales MD Referring Provider: SELF [[id number]] Allergies As of Date: 06/13/2018 Noted Allergy Reaction CLINDAMYCIN 10/07/2017 6 - Diarrhea SEASONAL ALLERGIES 03/04/2016 14 - Other: See Comments Comments: Symptoms vary Date Reviewed: 06/13/2018 Reviewed by: Karissa Sales - Fully Assessed Reason for Visit: ER F/U [41] Cmt: Seen at [facility] ER yesterday for chest pain Primary Visit Diagnosis:Atypical chest pain [R07.89] Prescriptions as of 06/13/2018 Sig: HYOSCYAMINE SULFATE 0.125 MG * Take 1 tablet by mouth twice * OMEPRAZOLE 20 MG CAPSULE,THOMAS* Take 1 capsule by mouth daily* SUCRALFATE 1 GRAM TABLET Take with a swallow of water* CYCLOBENZAPRINE 10 MG TABLET Take 1 tablet by mouth three * Patient not taking: Reported on 06/13/2018 LOPERAMIDE 2 MG TABLET Take 2 tabs po x1 now and the* LORATADINE 10 MG TABLET Take 1 tablet by mouth once d* Patient not taking: Reported on 06/13/2018 NAPROXEN 500 MG TABLET Take 1 tablet by mouth twice * Patient not taking: Reported on 06/13/2018 ONDANSETRON HCL 8 MG TABLET Take 1 tablet by mouth every * Patient not taking: Reported on 06/13/2018 RANITIDINE 150 MG TABLET Take 1 tablet by mouth twice * Patient not taking: Reported on 06/13/2018 Problem List As Of Date 06/13/2018 Noted Resolved GERD (gastroesophageal reflux disease) [K21.9] INVALID FOR* Obesity, unspecified [E66.9] INVALID FOR* Seasonal allergies [J30.2] INVALID FOR* Decreased hearing of left ear [H91.92] INVALID FOR* More... Well adult exam [Z00.00] INVALID FOR* More... Multiple lipomas [D17.9] INVALID FOR* More... Encounter for screening for diabetes mellitus [*INVALID FOR* Elevated blood-pressure reading without diagnos*INVALID FOR* Dyslipidemia [E78.5] INVALID FOR* RBBB [I45.10] INVALID FOR* Disposition: Return if symptoms worsen or fail to improve. Follow-up and Disposition History Recorded Letter Text June 13, 2018 TO WHOM IT MAY CONCERN: This is to certify that Mr. Asher Mccauley has been under my care for atypical chest pain and was unable to work from 06/12/2018 through 06/19/2018. Mr. Mccauley may return to work on 06/20/2018 without restrictions. Sincerely yours, Karissa Sales MD Encounter Status:Closed by KARISSA SALES on 06/13/18 EMERGENCY DEPARTMENT Observed: 06/12/2018 Status: F Source: [place] SUMMARY 10:39 PM [facility] REPOSITORY [facility] Medical Records Department [address] [place] [id number] Emergency Department Summary 06/12/18 1608 MR#: [id number] Acct: [id number] Name: ASHER MCCAULEY Rep #: [id number] : 1980 38 From: Yoshi Norman MD PCP: Karissa Sales MD Status: DEP ER - ER Visit Summary Date of Service: 06/12/18 Chief Complaint: Chest pain, indigestion History of Present Illness: The patient is a 38 M with history of paroxysmal atrial fibrillation presents to the emergency department with indigestion. Patient states he has been having indigestion for the past 5 days. He states his been rather constant. He states that he was out hunting over the weekend with just would not go away. He called his primary care physician. He states because of his history, his family physician told to come in for cardiac rule out. He denies any history of coronary vascular disease. He denies any exertional symptoms. He said no dyspnea. The pain does not radiate into his neck or his arm. Physical Examination: Vital signs reviewed General: Well-nourished, well-developed Head: Normocephalic, atraumatic Eyes: Pupils equal and reactive, extraocular muscles intact Neck, supple, no lymphadenopathy Heart: Regular rate and rhythm Respiratory: No distress, clear bilaterally Abdomen: Soft, nontender, nondistended, no peritoneal signs Back: Nontender Extremities: Nontender, no edema, no cords Skin: Normal color no rash Neuro: Alert and oriented, no focal or lateralizing deficits Test Results: [] Emergency Department Course and Treatment: EKG was obtained on patient arrival. It shows sinus rhythm without acute ischemia. His old EKG was atrial fibrillation with RVR. Patient was kept on a monitor. He had no dysrhythmia. He was given aspirin in the GI cocktail. He had resolution of his substernal pain. His pain is not radiating. He really has no risk factor for coronary vascular disease. He is a constant pain for 5 days. His cardiac enzymes are normal. The patient is already scheduled for an outpatient stress test and Holter monitor. I do not feel that admission is necessary given his lack of symptoms and low heart score. He is comfortable with this plan of care and will be discharged home. Treatment Plan: [] Disposition: Discharge Impression: 1. Chest pain This note was generated with [employer] dictation software. It may contain incorrect words, spelling, and punctuation that were not noted in review of the chart prior to signing ED Disposition - Plan for ED Patient: Chief Complaint: Chest Pain Instructions: ED Chest Pain NonCardiac Referrals: Karissa Sales MD [Primary Care Provider] - What to do if you have Problems For any increased pain, shortness of breath, bleeding, nausea or vomiting, chest pain, or any unexpected problems, contact your Primary Care Provider. Call [facility] ([phone]) or report to the closest Emergency Room. Call 911 if necessary. 06/12/18 [id number] <Electronically signed by Yoshi Norman MD> Date Yoshi Norman MD Cosigner Signature (If Indicated): Date CC: Karissa Sales MD BASIC METABOLIC Collected: 06/12/2018 Status: F Source: [place] PROFILE (BMP) 4:15 PM [facility] REPOSITORY TYPE CODE TESTS RESULT OUT OF RANGE REFERENCE UNITS LAB L501.0100 74-106 mg/dL Normal GLU 91 Result Comment: Please note revised GLUCOSE reference range effective 2017. LAB L501.1000 7-18 mg/dL Normal BUN 12 LAB L501.1100 0.70-1.30 mg/dL Normal CREAT,SERUM 1.03 Result Comment: The validity of the calculated GFR AND GFRAA in patients over 70 years has not been determined. Clinical correlation is essential. LAB L501.1110 >60 mL/min Normal EST GFR 86 Result Comment: Non- GFR Calc LAB L501.1115 >60 mL/min Normal EST GFR - AA 104 Result Comment: GFR Calc LAB L501.1255 ml/min Normal Estimated CRCL 106.73 LAB L501.1300 10-20 RATIO BUN/CRE Normal 11.7 LAB L501.2200 8.5-10 mg/dL .1 CA Normal 8.8 LAB L501.5300 136-14 mmol/L 5 NA Normal 141 LAB L501.5600 3.5-5. mmol/L Low 1 K 3.3 LAB L501.5900 98-107 mmol/L High CL 108 LAB L501.6100 21.0-3 mmol/L 2.0 CO2 Normal 25.0 LAB L501.6200 5-15 GAP Normal 8 Performed By: #### L500.2500, L501.4010 #### [facility] [address] [place], [place], [id number] TROPONIN-I Collected: 06/12/2018 Status: F Source: [place] 4:15 PM [facility] REPOSITORY TYPE CODE TESTS RESULT OUT OF RANGE REFERENCE UNITS LAB L501.4010 <0.045 ng/mL Normal < 0.015 TROPONIN-I Result Comment: TROPONIN-I EXPECTED VALUES <0.045 Negative 0.045 - 0.590 Consistent with Cardiac Damage > OR = 0.600 Critical Value Not every elevated troponin is indicative of DC. These values should be used with clinical judgement in examining the patient's clinical picture for diagnosis. To establish a diagnosis of DC versus myocardial injury, there must be a demonstrated rise and/or fall in the troponin values, in addition to ischemic symptoms, EKG changes, new regional wall motion abnormality, and/or angiographical evidence. PLEASE NOTE: REFERENCE RANGES EDITED 17 Performed By: #### L500.2500, L501.4010 #### [facility] [address] [place], [address] CBC W/DIFF, AUTOMATED Collected: 06/12/2018 Status: F Source: [place] 4:15 PM [facility] REPOSITORY TYPE CODE TESTS RESULT OUT OF RANGE REFERENCE UNITS LAB L100.1000 4.4-11.0 K/mm3 Normal WBC 7.4 LAB L100.1200 4.6-6.2 M/mm3 Normal RBC 5.47 LAB L100.1300 13.0-16.5 g/dl Normal HGB 15.9 LAB L100.1400 40-54 % Normal HCT 46.6 LAB L100.1500 80-94 fL Normal MCV 85.2 LAB L100.1600 27.0-32.0 pg Normal MCH 29.1 LAB L100.1700 32-36 g/gl Normal MCHC 34.1 LAB L100.1810 11.6-14.6 % Normal RDW CV 12.2 LAB L100.1820 35.1-43.9 fl Normal RDW SD 38.0 LAB L100.1900 150-450 K/mm3 Normal PLT 248 LAB L100.2000 6.2-12.0 fl Normal MPV 9.3 LAB L100.2100 47-70 % Normal NEUT% 61.0 LAB L100.2200 19-41 % Normal LY% 30.1 LAB L100.2300 0-10 % Normal MONO% 6.9 LAB L100.2400 0-5 % Normal EO% 1.6 LAB L100.2500 0-1 % Normal BASO% 0.3 LAB L100.2550 0.0-0.9 % Normal IM GRAN % 0.100 Result Comment: IG% - Immature Granulocytes (promyelocytes, myelocytes and metamyelocytes) > 1% indicates that a LEFT SHIFT is Present. LAB L100.2620 2.0-7.7 X10 3/uL Normal Absolute Neut 4.5 LAB L100.2720 0.83-4.51 X10 3/ul Normal Absolute Lymph 2.23 Performed By: #### L100.0100 #### [facility] [address] [place], [address] CHEST 1 VIEW Observed: 06/12/2018 Status: F Source: [place] (PORTABLE) 3:59 PM [facility] REPOSITORY [facility] Imaging Services [address] [place] [address] Chest 1 View (Portable) MR#: [id number] Acct: [id number] Name: ASHER MCCAULEY Rep #: [id number] : 1980 M 38 From: Yevgeniy Pappsa MD PCP: Karissa Sales MD Status: REG ER Study: Chest 1 View (Portable) Date of Exam: 06/12/18 Exam# [id number] Ordering Dr: Yoshi Norman MD STUDY: X-RAY CHEST REASON FOR EXAM: Male, 38 years old. Chest/epigastric pain x 1 week. TECHNIQUE: AP portable upright view of the chest on 2 films. COMPARISON: Portable AP upright chest x-ray 2016. FINDINGS: The lungs are clear and expanded. There is no demonstrated pleural abnormality. Normal size heart. Normal mediastinum and christiano. Normal visualized pulmonary arteries. Normal visualized aortic arch and descending thoracic aorta. Normal visualized thoracic spine. Normal visualized ribs, clavicles, and shoulders. There is no demonstrated abnormality of the visualized soft tissue structures of the upper abdomen. RAD/Chest 1 View (Portable) IMPRESSION: Normal x-ray examination of the chest. Electronically Signed: Jose Enrique Pappas MD at 16:16 EST , Service support , CC: Karissa Sales MD; Yoshi Norman MD [employer] Breakfast Innkeeper: Signed CNOV Observed: 06/11/2018 Status: COMPLETED Source: [place] 3:00 PM [facility] REPOSITORY Office Visit ([facility]) ASHER CMCAULEY ([id number]) 1980 M Date Time Provider Department 06/11/18 3:00 PM KARISSA SALES [facility] During your visit today, we recorded the following information about you: Pulse Blood pressure Weight Height 82/minute 124/62 110.2 kg 1.829 m Era [place] 06/11/2018 8:35 PM Signed 38 year old male here for INACTIVATED INFLUENZA VACCINE. 3107-0906 Season Patient is identified by name and date of : Yes [] CONTRAINDICATIONS color enhanced section Age less than 6 months? No Allergy to eggs, chicken, chicken feathers, or chicken dander? No Allergy to thimerosal (a preservative) or formaldehyde, gelatin? No History of severe reaction to any vaccine component or a previous dose of influenza vaccination? No History of Guillain-Katy Syndrome within 6 weeks after a previous influenza vaccine? No Patient is not moderately or severely ill? No Current temperature greater or equal to 100.4F? No History of Bone Marrow Transplant prior 6 months or solid organ transplant in the past 3 months ? No History of fainting after a prior injection or medical procedure? No- ? If patient has fainted in the past, the CDC recommends sitting or lying down for 15 minutes after the vaccination. [] VERIFICATION color enhanced section Was the answer Yes for any of the above contraindications? No contraindications present. Acceptable to proceed with vaccine. Patient/guardian agrees the above answers are true to the best of their knowledge? Yes Flu vaccine information sheet given? Yes See immunization activity in [facility] for details of immunizations adminstered today. Patient age: [age] year old For The 1476-5500 Flu Season 6-35 months old: Fluzone 0.25 ml - IM (Preservative Free) 3 years of age: Fluzone 0.5 ml - IM (Preservative Free) 3 years and older: Fluzone 0.5 ml- IM-(with Preservatives) 65+ years old: 2-49 years old Fluzone High-Dose 0.5 ml - IM (Preservative Free) FLUMIST- intranasal REMEMBER: If patient is less than 9 years of age and this is the first vaccine of Influenza to be received in any flu season, they should receive a second dose in one months time. Karissa Sales MD 06/11/2018 8:35 PM Signed Chief Complaint Patient presents with: Physical Imm/Inj: Flu Vaccine HPI Asher Mccauley is a 38 year old male who presents here today for WAE and routine. Patient with Hx GERD, dyslipidemia, obesity as well as those reviewed and addressed below. In the past 5 days has been having some indigestion in the upper chest describes as a tightness but not burning up into the throat. No sour taste. Started on the zantac 150 mg twice a day and has had no improvement. Not made worse with activity. Seems better after eating. No shortness of breath. No nausea or cold sweat. Past medical history, appointments, medications, allergies reviewed. Previous Medical History PAST MEDICAL HISTORY Diagnosis Date - Dyslipidemia 10/09/2016 - GERD (gastroesophageal reflux disease) - Obesity - Rectal bleeding 09/23/2014 - Seasonal allergies 03/04/2016 Previous Surgical History PAST SURGICAL HISTORY Procedure Laterality Date - COLONOSCOPY 10/02/2017 Dr. Khan, repeat 10 yrs MAC - COLONS W/REM POLYP HT BX 09/23/2014 Repeat 2018 - EGD W/O OR W/BRUSH/WASH 8/12/15 EGD - LAPAROSCOPIC CHOLEYCYSTECTOMY 04/06/2016 - LAPAROSCOPY, SURGICAL, APPENDECTOMY 02/10/14 with umbilical hernia and appendix - PAST SURGICAL HISTORY OF wisdom teeth Family History FAMILY HISTORY Problem Relation Age of Onset - Asthma Mother - Allergies Mother - Breast Cancer Paternal Grandmother - Cancer Maternal Grandfather pancreatic - Cancer Maternal Grandmother pancreatic Patient Allergies ALLERGIES Allergen Reactions - Clindamycin Diarrhea - Seasonal Allergies Other: See Comments Symptoms vary Current Medications Current Outpatient Prescriptions on File Prior to Visit: cyclobenzaprine (FLEXERIL) 10 mg tablet Take 1 tablet by mouth three times daily as needed. hyoscyamine (LEVSIN) 0.125 mg tablet Take 1 tablet by mouth twice daily before meals. loratadine (CLARITIN) 10 mg tablet Take 1 tablet by mouth once daily. naproxen (NAPROSYN) 500 mg tablet Take 1 tablet by mouth twice daily as needed (for pain/inflammation). Take with food. ondansetron (ZOFRAN) 8 mg tablet Take 1 tablet by mouth every 8 hours as needed. ranitidine (ZANTAC) 150 mg tablet Take 1 tablet by mouth twice daily as needed. sucralfate (CARAFATE) 1 gram tablet Take with a swallow of water. Wait at least 30 minutes before eating/drinking. Loperamide HCl (IMODIUM A-D) 2 mg tab Take 2 tabs po x1 now and then take 1 tab po after each loose stool. No current facility-administered medications on file prior to visit. Social History Social History Marital status: Single Spouse name: Years of education: Number of children: 1 Social History Main Topics Smoking status: Never Smoker Smokeless tobacco: Never Used Alcohol use: Yes Comment: seldom Drug use: No Review of Symptoms REVIEW OF SYSTEMS GENERAL: No weight loss, malaise or fevers HEENT: Negative for frequent or significant headaches, significant change in vision, significant vision problems, significant ear problems or hearing loss, nasal discharge, or nose bleeds, sore throat, difficulty swallowing, mouth lesions, hoarseness NECK: Negative for lumps, goiter, pain and significant neck swelling RESPIRATORY: Negative for cough, hemoptysis, wheezing, COPD, dyspnea or shortness of breath CARDIOVASCULAR: Negative for leg swelling, hypertension, CHF. Has had a few episodes of irregular heart beat in the past 3-4 weeks lasting a few seconds and resolves. Had some slight dizziness with it. But no syncope. : No history of dysuria, frequency or blood MUSCULOSKELETAL: Negative for new joint pain or swelling, back pain or muscle pain SKIN: has a few spots on the right lower leg. Not istchy PSYCH: Negative for sleep disturbance, mood disorder and recent psychosocial stressors HEMATOLOGY/LYMPHOLOGY: Negative for prolonged bleeding, bruising easily or swollen nodes ENDOCRINE: Negative for cold or heat intolerance, polyuria, polydipsia and goiter NEURO: No history of headaches, syncope, paralysis, seizures or tremors EXAM: BP 124/62 (BP Site: Right Arm, BP Position: Sitting, BP Cuff Size: Regular Adult) Pulse 82 Ht 182.9 cm (6') Wt 110.2 kg (243 lb) BMI 32.96 kg/m? Last 6 Encounter BP Readings: Date: BP: 06/11/2018 124/62 03/05/2018 132/90 12/15/2017 126/92 12/11/2017 133/87 11/17/2017 136/90 10/09/2017 102/74 General Appearance: Well appearing, alert, in no acute distress, well-hydrated, well nourished.. Skin: Skin color, texture, turgor normal, no suspicious rashes or lesions. Head: Normocephalic, no masses, lesions, tenderness or abnormalities. Eyes: Anicteric sclera. Pupils are equally round and reactive to light. Extraocular movements are intact. . Ears: External ears, TM's normal, canals clear. Nose/Sinuses: Nares normal, septum midline, mucosa normal, no drainage or sinus tenderness. Oropharynx: Lips, mucosa, and tongue normal, teeth and gums normal, oropharynx normal. Neck: Supple, no adenopathy; thyroid symmetric, normal size, no bruits. Lungs: lungs clear to auscultation. No wheezing, rhonchi, rales. Heart: RRR without murmur, gallop, or rubs. No ectopy. Abdomen: Normal abdominal exam, Abdomen soft, non-tender. Bowel sounds normal. No masses, organomegaly. Extremities: No deformities, edema, skin discoloration,. Musculoskeletal: Spine range of motion normal. Muscular strength intact, No joint swelling, deformity, or tenderness. Peripheral Pulses: Normal. Neurologic: Gait normal. Reflexes normal and symmetric. Sensation to light touch and crainal nerves 2-12 intact.. Genitalia: Normal, Penis normal. No urethral discharge. Scrotum normal to palpation. No hernia.. Health Maintenance List INFLUENZA(1) due on 02/24/2018 LIPID SCREEN due on 12/12/2022 DTAP,TDAP,TD(2 - Td) due on 03/04/2026 COLORECTAL CANCER SCREENING,SEE MODIFIER due on 10/03/2027 Data reviewed Component Latest Ref Rng AND Units 02/08/2017 12/12/2017 Protein, Total 6.3 - 8.0 g/dL 7.3 6.7 Albumin 3.9 - 4.9 g/dL 4.7 4.3 Calcium 8.5 - 10.2 mg/dL 9.5 9.1 Bilirubin, Total 0.2 - 1.3 mg/dL 0.6 0.9 Alkaline Phosphatase 36 - 108 U/L 60 59 AST 14 - 40 U/L 28 19 Glucose 74 - 99 mg/dL 100 (H) 94 BUN 9 - 24 mg/dL 11 15 Creatinine 0.73 - 1.22 mg/dL 1.11 1.03 Sodium 136 - 144 mmol/L 140 141 Potassium 3.7 - 5.1 mmol/L 4.2 4.0 Chloride 97 - 105 mmol/L 102 103 CO2 22 - 30 mmol/L 26 25 Anion Gap 9 - 18 mmol/L 12 13 ALT 10 - 54 U/L 38 16 eGFR- >60 >60 eGFR-All Other Races . >60 >60 Cholesterol, Total <200 mg/dL 142 Triglyceride <150 mg/dL 136 HDL Cholesterol >39 mg/dL 35 (L) LDL Cholesterol <100 mg/dL 80 Non HDL Cholesterol <130 mg/dL 107 Fasting Time hrs 12 VLDL Cholesterol <30 mg/dL 27 TC:HDL Ratio <5.10 4.06 LDL:HDL Ratio <2.54 2.29 Hemoglobin A1C 4.3 - 5.6 % 5.4 Estimated Average Glucose mg/dL 108 A/P ASSESSMENT/PLAN: 1. Well adult exam - ICD9: V70.0, ICD10: Z00.00 (primary diagnosis) - Recommended regular aerobic exercise. - Follow up for annual exam in one year. 2. Gastroesophageal reflux disease with esophagitis - ICD9: 530.11, ICD10: K21.0 - Begin treatment with omeprazole 20 mg QD. Stop the zantac. 3. Dyslipidemia - ICD9: 272.4, ICD10: E78.5 - good control - Encouraged following a low fat, low cholesterol diet. - Discussed the benefits of regular aerobic exercise and weight loss. - Encouraged following a low carbohydrate, healthy oil intake diet. 4. Seasonal allergies - ICD9: 477.9, ICD10: J30.2 - clinically stable 5. Palpitations - ICD9: 785.1, ICD10: R00.2 Check - STRESS REGULAR W/TREAD - [facility] EVENT MONITOR 6. RBBB - ICD9: 426.4, ICD10: I45.10 Check - STRESS REGULAR W/TREAD - [facility] EVENT MONITOR 7. Atypical chest pain - ICD9: 786.59, ICD10: R07.89 - check - STRESS REGULAR W/TREAD - [facility] EVENT MONITOR 8. Need for vaccination - ICD9: V05.9, ICD10: Z23 - INFLUENZA VACCINE QUADRIVALENT AGE 3 YRS PLUS + IM given Signed Prescriptions Disp Refills omeprazole (PRILOSEC) 20 mg capsule 30 capsule 5 Sig: Take 1 capsule by mouth daily before breakfast. 1/2 hr before meal. F/u in 8 weeks Karissa Sales MD Referring Provider: KARISSA SALES [[id number]] Allergies As of Date: 06/11/2018 Noted Allergy Reaction CLINDAMYCIN 10/07/2017 6 - Diarrhea SEASONAL ALLERGIES 03/04/2016 14 - Other: See Comments Comments: Symptoms vary Date Reviewed: 06/11/2018 Reviewed by: Karissa Sales - Fully Assessed Reason for Visit: Physical [83] Imm/Inj [58] Cmt: Flu Vaccine Reason For Visit History Recorded Primary Visit Diagnosis:Well adult exam [Z00.00] Comment:last done: 06/11/2018 Other Visit Diagnoses:Gastroesophageal reflux disease with esophagitis [K21.0] Dyslipidemia [E78.5] Seasonal allergies [J30.2] Palpitations [R00.2] RBBB [I45.10] Atypical chest pain [R07.89] Need for vaccination [Z23] Order(s):INFLUENZA VACCINE QUADRIVALENT AGE 3 YRS PLUS + IM [[id number]] Order #: [id number] STRESS REGULAR W/TREAD [[id number]] Order #: [id number]: 1 [facility] EVENT MONITOR [[id number]] Order #: [id number]: 1 omeprazole (PRILOSEC) 20 mg capsuleTake 1 capsule by mouth daily before breakfast. 1/2 hr before meal.Disp: 30 capsuleRfl: 5 Prescriptions as of 06/11/2018 Sig: CYCLOBENZAPRINE 10 MG TABLET Take 1 tablet by mouth three * HYOSCYAMINE SULFATE 0.125 MG * Take 1 tablet by mouth twice * LORATADINE 10 MG TABLET Take 1 tablet by mouth once d* NAPROXEN 500 MG TABLET Take 1 tablet by mouth twice * ONDANSETRON HCL 8 MG TABLET Take 1 tablet by mouth every * RANITIDINE 150 MG TABLET Take 1 tablet by mouth twice * SUCRALFATE 1 GRAM TABLET Take with a swallow of water* LOPERAMIDE 2 MG TABLET Take 2 tabs po x1 now and the* OMEPRAZOLE 20 MG CAPSULE,THOMAS* Take 1 capsule by mouth daily* Problem List As Of Date 06/11/2018 Noted Resolved GERD (gastroesophageal reflux disease) [K21.9] INVALID FOR* Obesity, unspecified [E66.9] INVALID FOR* Seasonal allergies [J30.2] INVALID FOR* Decreased hearing of left ear [H91.92] INVALID FOR* More... Well adult exam [Z00.00] INVALID FOR* More... Multiple lipomas [D17.9] INVALID FOR* More... Encounter for screening for diabetes mellitus [*INVALID FOR* Elevated blood-pressure reading without diagnos*INVALID FOR* Dyslipidemia [E78.5] INVALID FOR* RBBB [I45.10] INVALID FOR* Prescriptions ordered this encounter Disp Refills Start End OMEPRAZOLE 20 MG CAPSULE,DELAYED REL* 30 c* 5 06/11/2018 Route: ORAL Sig: Take 1 capsule by mouth daily before breakfast. 1/2 hr before meal. Disposition: Return in about 2 months (around 08/12/2018) for f/u chest pain and irregular heart rate. Follow-up and Disposition History Recorded Encounter Status:Closed by KARISSA SALES on 06/11/18 PROGRESS Observed: 06/11/2018 Status: COMPLETED Source: [place] 2:55 PM [facility] REPOSITORY O ID: [id number] Author: Karissa Sales Service: (none) Author Type: Physician Type: Progress Notes Filed: 06/11/2018 8:35 PM Note Text: Chief Complaint Patient presents with: Physical Imm/Inj: Flu Vaccine HPI Asher Mccauley is a 38 year old male who presents here today for WAE and routine. Patient with Hx GERD, dyslipidemia, obesity as well as those reviewed and addressed below. In the past 5 days has been having some indigestion in the upper chest describes as a tightness but not burning up into the throat. No sour taste. Started on the zantac 150 mg twice a day and has had no improvement. Not made worse with activity. Seems better after eating. No shortness of breath. No nausea or cold sweat. Past medical history, appointments, medications, allergies reviewed. Previous Medical History PAST MEDICAL HISTORY Diagnosis Date - Dyslipidemia 10/09/2016 - GERD (gastroesophageal reflux disease) - Obesity - Rectal bleeding 09/23/2014 - Seasonal allergies 03/04/2016 Previous Surgical History PAST SURGICAL HISTORY Procedure Laterality Date - COLONOSCOPY 10/02/2017 Dr. Khan, repeat 10 yrs MAC - COLONS W/REM POLYP HT BX 09/23/2014 Repeat 2018 - EGD W/O OR W/BRUSH/WASH 02/04/15 EGD - LAPAROSCOPIC CHOLEYCYSTECTOMY 04/06/2016 - LAPAROSCOPY, SURGICAL, APPENDECTOMY 02/10/14 with umbilical hernia and appendix - PAST SURGICAL HISTORY OF wisdom teeth Family History FAMILY HISTORY Problem Relation Age of Onset - Asthma Mother - Allergies Mother - Breast Cancer Paternal Grandmother - Cancer Maternal Grandfather pancreatic - Cancer Maternal Grandmother pancreatic Patient Allergies ALLERGIES Allergen Reactions - Clindamycin Diarrhea - Seasonal Allergies Other: See Comments Symptoms vary Current Medications Current Outpatient Prescriptions on File Prior to Visit: cyclobenzaprine (FLEXERIL) 10 mg tablet Take 1 tablet by mouth three times daily as needed. hyoscyamine (LEVSIN) 0.125 mg tablet Take 1 tablet by mouth twice daily before meals. loratadine (CLARITIN) 10 mg tablet Take 1 tablet by mouth once daily. naproxen (NAPROSYN) 500 mg tablet Take 1 tablet by mouth twice daily as needed (for pain/inflammation). Take with food. ondansetron (ZOFRAN) 8 mg tablet Take 1 tablet by mouth every 8 hours as needed. ranitidine (ZANTAC) 150 mg tablet Take 1 tablet by mouth twice daily as needed. sucralfate (CARAFATE) 1 gram tablet Take with a swallow of water. Wait at least 30 minutes before eating/drinking. Loperamide HCl (IMODIUM A-D) 2 mg tab Take 2 tabs po x1 now and then take 1 tab po after each loose stool. No current facility-administered medications on file prior to visit. Social History Social History Marital status: Single Spouse name: Years of education: Number of children: 1 Social History Main Topics Smoking status: Never Smoker Smokeless tobacco: Never Used Alcohol use: Yes Comment: seldom Drug use: No Review of Symptoms REVIEW OF SYSTEMS GENERAL: No weight loss, malaise or fevers HEENT: Negative for frequent or significant headaches, significant change in vision, significant vision problems, significant ear problems or hearing loss, nasal discharge, or nose bleeds, sore throat, difficulty swallowing, mouth lesions, hoarseness NECK: Negative for lumps, goiter, pain and significant neck swelling RESPIRATORY: Negative for cough, hemoptysis, wheezing, COPD, dyspnea or shortness of breath CARDIOVASCULAR: Negative for leg swelling, hypertension, CHF. Has had a few episodes of irregular heart beat in the past 3-4 weeks lasting a few seconds and resolves. Had some slight dizziness with it. But no syncope. : No history of dysuria, frequency or blood MUSCULOSKELETAL: Negative for new joint pain or swelling, back pain or muscle pain SKIN: has a few spots on the right lower leg. Not istchy PSYCH: Negative for sleep disturbance, mood disorder and recent psychosocial stressors HEMATOLOGY/LYMPHOLOGY: Negative for prolonged bleeding, bruising easily or swollen nodes ENDOCRINE: Negative for cold or heat intolerance, polyuria, polydipsia and goiter NEURO: No history of headaches, syncope, paralysis, seizures or tremors EXAM: BP 124/62 (BP Site: Right Arm, BP Position: Sitting, BP Cuff Size: Regular Adult) Pulse 82 Ht 182.9 cm (6') Wt 110.2 kg (243 lb) BMI 32.96 kg/m? Last 6 Encounter BP Readings: Date: BP: 06/11/2018 124/62 03/05/2018 132/90 12/15/2017 126/92 12/11/2017 133/87 11/17/2017 136/90 10/09/2017 102/74 General Appearance: Well appearing, alert, in no acute distress, well-hydrated, well nourished.. Skin: Skin color, texture, turgor normal, no suspicious rashes or lesions. Head: Normocephalic, no masses, lesions, tenderness or abnormalities. Eyes: Anicteric sclera. Pupils are equally round and reactive to light. Extraocular movements are intact. . Ears: External ears, TM's normal, canals clear. Nose/Sinuses: Nares normal, septum midline, mucosa normal, no drainage or sinus tenderness. Oropharynx: Lips, mucosa, and tongue normal, teeth and gums normal, oropharynx normal. Neck: Supple, no adenopathy; thyroid symmetric, normal size, no bruits. Lungs: lungs clear to auscultation. No wheezing, rhonchi, rales. Heart: RRR without murmur, gallop, or rubs. No ectopy. Abdomen: Normal abdominal exam, Abdomen soft, non-tender. Bowel sounds normal. No masses, organomegaly. Extremities: No deformities, edema, skin discoloration,. Musculoskeletal: Spine range of motion normal. Muscular strength intact, No joint swelling, deformity, or tenderness. Peripheral Pulses: Normal. Neurologic: Gait normal. Reflexes normal and symmetric. Sensation to light touch and crainal nerves 2-12 intact.. Genitalia: Normal, Penis normal. No urethral discharge. Scrotum normal to palpation. No hernia.. Health Maintenance List INFLUENZA(1) due on 02/24/2018 LIPID SCREEN due on 12/12/2022 DTAP,TDAP,TD(2 - Td) due on 03/04/2026 COLORECTAL CANCER SCREENING,SEE MODIFIER due on 10/03/2027 Data reviewed Component Latest Ref Rng AND Units 02/08/2017 12/12/2017 Protein, Total 6.3 - 8.0 g/dL 7.3 6.7 Albumin 3.9 - 4.9 g/dL 4.7 4.3 Calcium 8.5 - 10.2 mg/dL 9.5 9.1 Bilirubin, Total 0.2 - 1.3 mg/dL 0.6 0.9 Alkaline Phosphatase 36 - 108 U/L 60 59 AST 14 - 40 U/L 28 19 Glucose 74 - 99 mg/dL 100 (H) 94 BUN 9 - 24 mg/dL 11 15 Creatinine 0.73 - 1.22 mg/dL 1.11 1.03 Sodium 136 - 144 mmol/L 140 141 Potassium 3.7 - 5.1 mmol/L 4.2 4.0 Chloride 97 - 105 mmol/L 102 103 CO2 22 - 30 mmol/L 26 25 Anion Gap 9 - 18 mmol/L 12 13 ALT 10 - 54 U/L 38 16 eGFR- >60 >60 eGFR-All Other Races . >60 >60 Cholesterol, Total <200 mg/dL 142 Triglyceride <150 mg/dL 136 HDL Cholesterol >39 mg/dL 35 (L) LDL Cholesterol <100 mg/dL 80 Non HDL Cholesterol <130 mg/dL 107 Fasting Time hrs 12 VLDL Cholesterol <30 mg/dL 27 TC:HDL Ratio <5.10 4.06 LDL:HDL Ratio <2.54 2.29 Hemoglobin A1C 4.3 - 5.6 % 5.4 Estimated Average Glucose mg/dL 108 A/P ASSESSMENT/PLAN: 1. Well adult exam - ICD9: V70.0, ICD10: Z00.00 (primary diagnosis) - Recommended regular aerobic exercise. - Follow up for annual exam in one year. 2. Gastroesophageal reflux disease with esophagitis - ICD9: 530.11, ICD10: K21.0 - Begin treatment with omeprazole 20 mg QD. Stop the zantac. 3. Dyslipidemia - ICD9: 272.4, ICD10: E78.5 - good control - Encouraged following a low fat, low cholesterol diet. - Discussed the benefits of regular aerobic exercise and weight loss. - Encouraged following a low carbohydrate, healthy oil intake diet. 4. Seasonal allergies - ICD9: 477.9, ICD10: J30.2 - clinically stable 5. Palpitations - ICD9: 785.1, ICD10: R00.2 Check - STRESS REGULAR W/TREAD - [facility] [employer] EVENT MONITOR 6. RBBB - ICD9: 426.4, ICD10: I45.10 Check - STRESS REGULAR W/[place] - [facility] [employer] EVENT MONITOR 7. Atypical chest pain - ICD9: 786.59, ICD10: R07.89 - check - STRESS REGULAR W/TREAD - [facility] [employer] EVENT MONITOR 8. Need for vaccination - ICD9: V05.9, ICD10: Z23 - INFLUENZA VACCINE QUADRIVALENT AGE 3 YRS PLUS + IM given Signed Prescriptions Disp Refills omeprazole (PRILOSEC) 20 mg capsule 30 capsule 5 Sig: Take 1 capsule by mouth daily before breakfast. 1/2 hr before meal. F/u in 8 weeks Karissa Sales MD PROGRESS Observed: 06/11/2018 Status: COMPLETED Source: [place] 2:44 PM [facility] REPOSITORY O ID: [id number] Author: Era Bhagat Service: (none) Author Type: (none) Type: Progress Notes Filed: 06/11/2018 8:35 PM Note Text: 38 year old male here for INACTIVATED INFLUENZA VACCINE. Season Patient is identified by name and date of : Yes [] CONTRAINDICATIONS color enhanced section Age less than 6 months? No Allergy to eggs, chicken, chicken feathers, or chicken dander? No Allergy to thimerosal (a preservative) or formaldehyde, gelatin? No History of severe reaction to any vaccine component or a previous dose of influenza vaccination? No History of Guillain-Katy Syndrome within 6 weeks after a previous influenza vaccine? No Patient is not moderately or severely ill? No Current temperature greater or equal to 100.4F? No History of Bone Marrow Transplant prior 6 months or solid organ transplant in the past 3 months ? No History of fainting after a prior injection or medical procedure? No- ? If patient has fainted in the past, the CDC recommends sitting or lying down for 15 minutes after the vaccination. [] VERIFICATION color enhanced section Was the answer Yes for any of the above contraindications? No contraindications present. Acceptable to proceed with vaccine. Patient/guardian agrees the above answers are true to the best of their knowledge? Yes Flu vaccine information sheet given? Yes See immunization activity in [facility] for details of immunizations adminstered today. Patient age: [age] year old For The 2160-3327 Flu Season 6-35 months old: Fluzone 0.25 ml - IM (Preservative Free) 3 years of age: Fluzone 0.5 ml - IM (Preservative Free) 3 years and older: Fluzone 0.5 ml- IM-(with Preservatives) 65+ years old: 2-49 years old Fluzone High-Dose 0.5 ml - IM (Preservative Free) FLUMIST- intranasal REMEMBER: If patient is less than 9 years of age and this is the first vaccine of Influenza to be received in any flu season, they should receive a second dose in one months time. PROGRESS Observed: 03/05/2018 Status: COMPLETED Source: [place] 7:44 AM [facility] REPOSITORY HNO ID: [id number] Author: Ольга (Avery) Mena Service: (none) Author Type: Nurse Practitioner Type: Progress Notes Filed: 03/05/2018 8:26 AM Note Text: Asher Chasebury a 37 year old male who is returning for follow up regarding RUQ pain. I saw the patient in consultation on 12/11/17. That note has been reviewed. Plan: Start sucralfate and pantoprazole. Get the blood work today. Status report in a month, sooner, if any problems. EGD if no improvement. He agrees with this plan. Component Latest Ref Rng AND Units 12/12/2017 Protein, Total 6.3 - 8.0 g/dL 6.7 Albumin 3.9 - 4.9 g/dL 4.3 Calcium 8.5 - 10.2 mg/dL 9.1 Bilirubin, Total 0.2 - 1.3 mg/dL 0.9 Alkaline Phosphatase 36 - 108 U/L 59 AST 14 - 40 U/L 19 Glucose 74 - 99 mg/dL 94 BUN 9 - 24 mg/dL 15 Creatinine 0.73 - 1.22 mg/dL 1.03 Sodium 136 - 144 mmol/L 141 Potassium 3.7 - 5.1 mmol/L 4.0 Chloride 97 - 105 mmol/L 103 CO2 22 - 30 mmol/L 25 Anion Gap 9 - 18 mmol/L 13 ALT 10 - 54 U/L 16 eGFR- >60 eGFR-All Other Races . >60 Lipase 16 - 61 U/L 19 Amylase 30 - 104 U/L 44 HIDA scan 12/03/14 IMPRESSION: 1. PATENT CYSTIC AND COMMON BILE DUCTS. NO EVIDENCE OF ACUTE CHOLECYSTITIS. 2. NORMAL GALLBLADDER EJECTION FRACTION. NO EVIDENCE OF CHRONIC CHOLECYSTITIS. 3. ?SCINTIGRAPHIC FINDINGS CONSISTENT WITH DUODENOGASTRIC REFLUX OF BILE ON THE CCK STIMULATED IMAGES. Reports have been reviewed with the patient. Presenting complaint: The patient presents today stating some weeks I feel fine, and when I feel fine, I'm fine. Some days it's bad. He tells me when I wake up in the morning I usually feel good. Drinks a soda and might have a pack of pb crackers for breakfast, without much bother. What he eats doesn't seem to determine how he'll feel after that. I never know what's going to happen. Might have an urgent bowel movement. Might not be any problem. The patient tells me that he quit taking the pantoprazole because he believes it started making him feel worse. He takes the sucralfate maybe 5 times a week. Usually only if I'm going to eat a big meal, and it helps. He tells me that he doesn't like to take something all the time. We discussed that taking it consistently, at least with lunch and dinner, could be more helpful. I have also offered hyoscyamine. He is willing to try it. Having a bowel movement at least once a day. The patient complains of back pain. He tells me that he has had it for quite a while. 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 Would like an othro within . I'll see who Dr. Sales might recommend. He thinks if his back didn't bother him so much, everything else might not seem os bad. REVIEW OF SYSTEMS: GENERAL: No weight loss, malaise or fevers GI: The patient states that his appetite has been good. He does get hungry. There has been no nausea, no vomiting. He denies dysphagia and denies odynophagia. There has occaisonally been indigestion without heartburn. There has not been regurgitation. Bowel habits have been regular. There has partially been diarrhea. There has not been constipation. The patient denies rectal bleeding. There has not been melena. No new or worsening abdominal pain. MUSCULOSKELETAL: Reports mid back pain, as reported above. All other reviewed and negative other than HPI. PAST MEDICAL HISTORY Diagnosis Date - GERD (gastroesophageal reflux disease) - Obesity - Rectal bleeding 09/23/2014 - Seasonal allergies 03/04/2016 PAST SURGICAL HISTORY Procedure Laterality Date - COLONOSCOPY 10/02/2017 Dr. Khan, repeat 10 yrs MAC - COLONS W/REM POLYP HT BX 09/23/2014 Repeat 2018 - EGD W/O OR W/BRUSH/WASH 02/04/15 EGD - LAPAROSCOPIC CHOLEYCYSTECTOMY 04/06/2016 - LAPAROSCOPY, SURGICAL, APPENDECTOMY 02/10/14 with umbilical hernia and appendix - PAST SURGICAL HISTORY OF wisdom teeth FAMILY HISTORY Problem Relation Age of Onset - Asthma Mother - Allergies Mother - Breast Cancer Paternal Grandmother - Cancer Maternal Grandfather pancreatic - Cancer Maternal Grandmother pancreatic Current Outpatient Prescriptions: cyclobenzaprine (FLEXERIL) 10 mg tablet Take 1 tablet by mouth three times daily as needed. Disp: 30 tablet Rfl: 0 naproxen (NAPROSYN) 500 mg tablet Take 1 tablet by mouth twice daily as needed (for pain/inflammation). Take with food. Disp: 30 tablet Rfl: [address] (PROTONIX) 20 mg tablet Take 1 tablet by mouth once daily. Disp: 30 tablet Rfl: 3 sucralfate (CARAFATE) 1 gram tablet Take with a swallow of water. Wait at least 30 minutes before eating/drinking. Disp: 120 tablet Rfl: 2 loratadine (CLARITIN) 10 mg tablet Take 1 tablet by mouth once daily. Disp: 30 tablet Rfl: 11 ondansetron (ZOFRAN) 8 mg tablet Take 1 tablet by mouth every 8 hours as needed. Disp: 20 tablet Rfl: 0 Loperamide HCl (IMODIUM A-D) 2 mg tab Take 2 tabs po x1 now and then take 1 tab po after each loose stool. Disp: 20 tablet Rfl: 0 Ranitidine HCl (ZANTAC) 300 mg tablet Take 1 tablet by mouth daily at bedtime. (Patient taking differently: Take 300 mg by mouth as needed. ) Disp: 30 tablet Rfl: 1 No current facility-administered medications for this visit. SOCIAL HISTORY: Patient is single. He has never smoked. Asher reports his alcohol use as occasionally. PHYSICAL EXAMINATION: General Appearance: Well appearing, alert, in no acute distress, well-hydrated, well nourished. Skin: Skin color, texture, turgor normal, no suspicious rashes or lesions. Head: Normocephalic, no masses, lesions or abnormalities. Eyes: Anicteric sclera. Neck: Supple, no adenopathy; thyroid symmetric, normal size. Lungs: Lungs clear to auscultation. No wheezing, rhonchi, rales. Heart: RRR without murmur. Abdomen: Normal abdominal exam, Abdomen soft, non-tender. Bowel sounds normal. No masses, organomegaly. Extremities: No deformities, edema, skin discoloration, clubbing or cyanosis. Impression: bile reflux gastritis 2)functional bowel disorder Plan: Ranitidine as needed. Sucralfate routinely was recommended. Trial of hyoscyamine. He is asked to report back with an update. Consider EGD, but doubtful any new outcome. I have personally interviewed and examined this patient. I have reviewed the information that the MA entered for this encounter. I spent 25 minutes in the visit, with greater than 50% of the total [id number] time of the visit in counseling and coordination of care. Ольга San RN APRN.GABRIELE CNOV Observed: 03/05/2018 Status: COMPLETED Source: [place] 7:40 AM [facility] REPOSITORY [facility] ASHER MCCAULEY ([id number]) 1980 M Date Time Provider Department 03/05/18 7:40 AM ОЛЬГА SAN (AVERY) [facility] During your visit today, we recorded the following information about you: Pulse Blood pressure Weight Height 77/minute 132/90 109.3 kg 1.829 m Ольга San RN APRN.GABRIELE 03/05/2018 8:26 AM Signed Asher Mccauley a 37 year old male who is returning for follow up regarding RUQ pain. I saw the patient in consultation on 12/11/17. That note has been reviewed. Plan: Start sucralfate and pantoprazole. Get the blood work today. Status report in a month, sooner, if any problems. EGD if no improvement. He agrees with this plan. Component Latest Ref Rng AND Units 12/12/2017 Protein, Total 6.3 - 8.0 g/dL 6.7 Albumin 3.9 - 4.9 g/dL 4.3 Calcium 8.5 - 10.2 mg/dL 9.1 Bilirubin, Total 0.2 - 1.3 mg/dL 0.9 Alkaline Phosphatase 36 - 108 U/L 59 AST 14 - 40 U/L 19 Glucose 74 - 99 mg/dL 94 BUN 9 - 24 mg/dL 15 Creatinine 0.73 - 1.22 mg/dL 1.03 Sodium 136 - 144 mmol/L 141 Potassium 3.7 - 5.1 mmol/L 4.0 Chloride 97 - 105 mmol/L 103 CO2 22 - 30 mmol/L 25 Anion Gap 9 - 18 mmol/L 13 ALT 10 - 54 U/L 16 eGFR- >60 eGFR-All Other Races . >60 Lipase 16 - 61 U/L 19 Amylase 30 - 104 U/L 44 HIDA scan 12/03/14 IMPRESSION: 1. PATENT CYSTIC AND COMMON BILE DUCTS. NO EVIDENCE OF ACUTE CHOLECYSTITIS. 2. NORMAL GALLBLADDER EJECTION FRACTION. NO EVIDENCE OF CHRONIC CHOLECYSTITIS. 3. ?SCINTIGRAPHIC FINDINGS CONSISTENT WITH DUODENOGASTRIC REFLUX OF BILE ON THE CCK STIMULATED IMAGES. Reports have been reviewed with the patient. Presenting complaint: The patient presents today stating some weeks I feel fine, and when I feel fine, I'm fine. Some days it's bad. He tells me when I wake up in the morning I usually feel good. Drinks a soda and might have a pack of pb crackers for breakfast, without much bother. What he eats doesn't seem to determine how he'll feel after that. I never know what's going to happen. Might have an urgent bowel movement. Might not be any problem. The patient tells me that he quit taking the pantoprazole because he believes it started making him feel worse. He takes the sucralfate maybe 5 times a week. Usually only if I'm going to eat a big meal, and it helps. He tells me that he doesn't like to take something all the time. We discussed that taking it consistently, at least with lunch and dinner, could be more helpful. I have also offered hyoscyamine. He is willing to try it. Having a bowel movement at least once a day. The patient complains of back pain. He tells me that he has had it for quite a while. 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 Would like an othro within . I'll see who Dr. Sales might recommend. He thinks if his back didn't bother him so much, everything else might not seem os bad. REVIEW OF SYSTEMS: GENERAL: No weight loss, malaise or fevers GI: The patient states that his appetite has been good. He does get hungry. There has been no nausea, no vomiting. He denies dysphagia and denies odynophagia. There has occaisonally been indigestion without heartburn. There has not been regurgitation. Bowel habits have been regular. There has partially been diarrhea. There has not been constipation. The patient denies rectal bleeding. There has not been melena.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 with him, or if he eats too much at one setting. He will get pain in the RUQ that radiates to the back. His stools will be loose and light colored. The patient reports that his mother had very similar symptoms and ended up finally having her gallbladder out. The patient had his cholecystectomy on 04/06/16. He reports that he seemed to do better, but symptoms have returned. The patient was seen by Dr. Khan for colonoscopy 10/02/17 due to a history of polyps. The procedure report has been reviewed. the entire colon was reported as normal appearance, no mass lesions. The patient was seen by Dr. Sales on 11/17/17, leading to this consultation. That note has been reviewed and part as follows: Assessment/Plan: 2. Gastroesophageal reflux disease with esophagitis - ICD9: 530.11, ICD10: K21.0 - Continue treatment with Zantac 150 mg QD As needed - CONSULT TO GASTROENTEROLOGY ? 3. Right sided abdominal pain - ICD9: 789.09, ICD10: R10.9 Check - LIPASE BLD - AMYLASE BLD - CONSULT TO GASTROENTEROLOGY Labs were ordered, but not done. Presenting complaint: The patient presents today reporting annoying type pain right through here - rubbing RUQ. Nothing makes it worse. Eating makes it feel better for a while. The patient has ranitidine at home, but tells me that he rarely uses it since he doesn't really get heartburn. He also has pain in the back, right periscapular, that bothers him more when working outside. He is right hand dominant. Other days, nothing seems to make it worse. Comes and goes. Having a couple bowel movements a day. No blood or black stool. REVIEW OF SYSTEMS: GENERAL: No weight loss, malaise or fevers GI: The patient states that his appetite has been good. He does get hungry. There has been no nausea, no vomiting. He denies dysphagia and denies odynophagia. There has partially been indigestion without heartburn. There has not been regurgitation. Bowel habits have been regular. There has not been diarrhea. There has not been constipation. The patient denies rectal bleeding. There has not been melena. Intermittent abdominal pain that is located in the right upper quadrant. PSYCH: Negative for sleep disturbance, mood disorder and recent psychosocial stressors. HEMATOLOGY/LYMPHOLOGY Negative for prolonged bleeding, bruising easily or swollen nodes ENDOCRINE: Negative for thyroid or diabetes. NEURO: No history of headaches, syncope, paralysis, seizures or tremors All other reviewed and negative other than HPI. PAST MEDICAL HISTORY Diagnosis Date - GERD (gastroesophageal reflux disease) - Obesity - Rectal bleeding 09/23/2014 - Seasonal allergies 03/04/2016 PAST SURGICAL HISTORY Procedure Laterality Date - COLONOSCOPY 10/02/2017 Dr. Khan, repeat 10 yrs - COLONS W/REM POLYP HT BX 09/23/2014 Repeat 2018 - EGD W/O OR W/BRUSH/WASH 02/04/15 EGD - LAPAROSCOPIC CHOLEYCYSTECTOMY 04/06/2016 - LAPAROSCOPY, SURGICAL, APPENDECTOMY 02/10/14 with umbilical hernia and appendix - PAST SURGICAL HISTORY OF wisdom teeth FAMILY HISTORY Problem Relation Age of Onset - Asthma Mother - Allergies Mother - Breast Cancer Paternal Grandmother - Cancer Maternal Grandfather pancreatic - Cancer Maternal Grandmother pancreatic Current Outpatient Prescriptions: loratadine (CLARITIN) 10 mg tablet Take 1 tablet by mouth once daily. Disp: 30 tablet Rfl: 11 ondansetron (ZOFRAN) 8 mg tablet Take 1 tablet by mouth every 8 hours as needed. Disp: 20 tablet Rfl: 0 Loperamide HCl (IMODIUM A-D) 2 mg tab Take 2 tabs po x1 now and then take 1 tab po after each loose stool. Disp: 20 tablet Rfl: 0 Ranitidine HCl (ZANTAC) 300 mg tablet Take 1 tablet by mouth daily at bedtime. (Patient taking differently: Take 300 mg by mouth as needed. ) Disp: 30 tablet Rfl: 1 No current facility-administered medications for this visit. SOCIAL HISTORY: Patient is single. He has never smoked. Asher reports his alcohol use as rarely <1per month. PHYSICAL EXAMINATION: Blood pressure 133/87, pulse 74, height 182.9 cm (6'), weight 106.1 kg (234 lb). General Appearance: Well appearing, alert, in no acute distress, well-hydrated, well nourished. Skin: Skin color, texture, turgor normal, no suspicious rashes or lesions. he has a couple very small lipomas on his abdomen in the RUQ. Head: Normocephalic, no masses, lesions or abnormalities. Eyes: Anicteric sclera. Oropharynx: Lips, mucosa, and tongue normal, teeth and gums normal, oropharynx normal. Neck: Supple, no adenopathy; thyroid symmetric, normal size. Lungs: Lungs clear to auscultation. No wheezing, rhonchi, rales. Heart: RRR without murmur. Abdomen: Normal abdominal exam, Abdomen soft, non-tender. Bowel sounds normal. No masses, organomegaly. Extremities: No deformities, edema, skin discoloration, clubbing or cyanosis. Neurologic: Gait normal. Sensation grossly intact. Impression: dyspepsia 2)bile reflux Plan: Start sucralfate and pantoprazole. Get the blood work today. Status report in a month, sooner, if any problems. EGD if no improvement. He agrees with this plan. I have personally interviewed and examined this patient. I have reviewed the information that the MA entered for this encounter. I spent 30 minutes in the visit, with greater than 50% of the total [id number] time of the visit in counseling and coordination of care. Ольга San RN APRN.[employer] CNOV Observed: 12/11/2017 Status: COMPLETED Source: [place] 7:40 AM [facility] REPOSITORY [facility] ASHER MCCAULEY ([id number]) 1980 M Date Time Provider Department 12/11/17 7:40 AM ОЛЬГА SAN (IN TUBE CONVERSION TECHNICIAN) [facility] During your visit today, we recorded the following information about you: Pulse Blood pressure Weight Height 74/minute 133/87 106.1 kg 1.829 m Ольга San RN APRN.[employer] 12/11/2017 8:42 AM Signed Asher Mccauley a 37 year old male who is a consultation requested by Dr. Sales for an opinion regarding right sided abdominal pain as well as GERD. My final recommendations will be communicated back to the requesting physician by way of shared Medical record. I initially saw the patient in [facility] on 03/13/15. He reported RUQ pain. HIDA scan 12/03/14 IMPRESSION: 1. PATENT CYSTIC AND COMMON BILE DUCTS. NO EVIDENCE OF ACUTE CHOLECYSTITIS. 2. NORMAL GALLBLADDER EJECTION FRACTION. NO EVIDENCE OF CHRONIC CHOLECYSTITIS. 3. ?SCINTIGRAPHIC FINDINGS CONSISTENT WITH DUODENOGASTRIC REFLUX OF BILE ON THE CCK STIMULATED IMAGES. The patient was seen by Dr. Lopez for upper endoscopy 02/04/15 for reported epigastric pain. The procedure report has been reviewed and findings as follows: Impression: ? ? - Non-severe reflux esophagitis. Biopsied. ? - Erythematous mucosa in the antrum. Biopsied. ? - Normal examined duodenum. FINAL DIAGNOSIS 1. Antrum, biopsy (A) - Transitional-type gastric mucosa with no diagnostic alteration. - Negative for Helicobacter pylori organisms. 2. Esophagus, distal, biopsy (B) - Cardiac-type mucosa with acute and chronic inflammation and reactive epithelial changes. Negative for goblet cells. - Squamous mucosa with reactive epithelial changes. I saw the patient last on 01/08/16. That note has been reviewed and part as follows: returning for follow up regarding dyspepsia. The patient saw Dr. Lopez most recently on 09/08/15. That note has been reviewed. He was given a prescription for Levsin as well as amitriptyline. He wasreporting that he didn't start the amitriptyline since the side effect list was so bad, especially the photo sensitivity. 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 He tells that he hasn't used any Levsin. He tells me that he has been trying to watch his diet instead. Also trying to eat less. This seems to have a little benefit. The patient describes feeling crappy when he eats something that is rich, greasy or disagrees with him, or if he eats too much at one setting. He will get pain in the RUQ that radiates to the back. His stools will be loose and light colored. The patient reports that his mother had very similar symptoms and ended up finally having her gallbladder out. The patient had his cholecystectomy on 04/06/16. He reports that he seemed to do better, but symptoms have returned. The patient was seen by Dr. Khan for colonoscopy 10/02/17 due to a history of polyps. The procedure report has been reviewed. the entire colon was reported as normal appearance, no mass lesions. The patient was seen by Dr. Sales on 11/17/17, leading to this consultation. That note has been reviewed and part as follows: Assessment/Plan: 2. Gastroesophageal reflux disease with esophagitis - ICD9: 530.11, ICD10: K21.0 - Continue treatment with Zantac 150 mg QD As needed - CONSULT TO GASTROENTEROLOGY ? 3. Right sided abdominal pain - ICD9: 789.09, ICD10: R10.9 Check - LIPASE BLD - AMYLASE BLD - CONSULT TO GASTROENTEROLOGY Labs were ordered, but not done. Presenting complaint: The patient presents today reporting annoying type pain right through here - rubbing RUQ. Nothing makes it worse. Eating makes it feel better for a while. The patient has ranitidine at home, but tells me that he rarely uses it since he doesn't really get heartburn. He also has pain in the back, right periscapular, that bothers him more when working outside. He is right hand dominant. Other days, nothing seems to make it worse. Comes and goes. Having a couple bowel movements a day. No blood or black stool. REVIEW OF SYSTEMS: GENERAL: No weight loss, malaise or fevers GI: The patient states that his appetite has been good. He does get hungry. There has been no nausea, no vomiting. He denies dysphagia and denies odynophagia. There has partially been indigestion without heartburn. There has not been regurgitation. Bowel habits have been regular. There has not been diarrhea. There has not been constipation. The patient denies rectal bleeding. There has not been melena. Intermittent abdominal pain that is located in the right upper quadrant. PSYCH: Negative for sleep disturbance, mood disorder and recent psychosocial stressors. HEMATOLOGY/LYMPHOLOGY Negative for prolonged bleeding, bruising easily or swollen nodes ENDOCRINE: Negative for thyroid or diabetes. NEURO: No history of headaches, syncope, paralysis, seizures or tremors All other reviewed and negative other than HPI. PAST MEDICAL HISTORY Diagnosis Date - GERD (gastroesophageal reflux disease) - Obesity - Rectal bleeding 09/23/2014 - Seasonal allergies 03/04/2016 PAST SURGICAL HISTORY Procedure Laterality Date - COLONOSCOPY 10/02/2017 Dr. Khan, repeat 10 yrs - COLONS W/REM POLYP HT BX 09/23/2014 Repeat 2018 - EGD W/O OR W/BRUSH/WASH 02/04/15 EGD - LAPAROSCOPIC CHOLEYCYSTECTOMY 04/06/2016 - LAPAROSCOPY, SURGICAL, APPENDECTOMY 02/10/14 with umbilical hernia and appendix - PAST SURGICAL HISTORY OF wisdom teeth FAMILY HISTORY Problem Relation Age of Onset - Asthma Mother - Allergies Mother - Breast Cancer Paternal Grandmother - Cancer Maternal Grandfather pancreatic - Cancer Maternal Grandmother pancreatic Current Outpatient Prescriptions: loratadine (CLARITIN) 10 mg tablet Take 1 tablet by mouth once daily. Disp: 30 tablet Rfl: 11 ondansetron (ZOFRAN) 8 mg tablet Take 1 tablet by mouth every 8 hours as needed. Disp: 20 tablet Rfl: 0 Loperamide HCl (IMODIUM A-D) 2 mg tab Take 2 tabs po x1 now and then take 1 tab po after each loose stool. Disp: 20 tablet Rfl: 0 Ranitidine HCl (ZANTAC) 300 mg tablet Take 1 tablet by mouth daily at bedtime. (Patient taking differently: Take 300 mg by mouth as needed. ) Disp: 30 tablet Rfl: 1 No current facility-administered medications for this visit. SOCIAL HISTORY: Patient is single. He has never smoked. Asher reports his alcohol use as rarely <1per month. PHYSICAL EXAMINATION: Blood pressure 133/87, pulse 74, height 182.9 cm (6'), weight 106.1 kg (234 lb). General Appearance: Well appearing, alert, in no acute distress, well-hydrated, well nourished. Skin: Skin color, texture, turgor normal, no suspicious rashes or lesions. he has a couple very small lipomas on his abdomen in the RUQ. Head: Normocephalic, no masses, lesions or abnormalities. Eyes: Anicteric sclera. Oropharynx: Lips, mucosa, and tongue normal, teeth and gums normal, oropharynx normal. Neck: Supple, no adenopathy; thyroid symmetric, normal size. Lungs: Lungs clear to auscultation. No wheezing, rhonchi, rales. Heart: RRR without murmur. Abdomen: Normal abdominal exam, Abdomen soft, non-tender. Bowel sounds normal. No masses, organomegaly. Extremities: No deformities, edema, skin discoloration, clubbing or cyanosis. Neurologic: Gait normal. Sensation grossly intact. Impression: dyspepsia 2)bile reflux Plan: Start sucralfate and pantoprazole. Get the blood work today. Status report in a month, sooner, if any problems. EGD if no improvement. He agrees with this plan. I have personally interviewed and examined this patient. I have reviewed the information that the MA entered for this encounter. I spent 30 minutes in the visit, with greater than 50% of the total [id number] time of the visit in counseling and coordination of care. 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 Wait at least 30 minutes before eating/drinking.Disp: 120 tabletRfl: 2 Prescriptions as of 12/11/2017 Sig: PANTOPRAZOLE 20 MG TABLET,DEL* Take 1 tablet by mouth once d* SUCRALFATE 1 GRAM TABLET Take with a swallow of water* LORATADINE 10 MG TABLET Take 1 tablet by mouth once d* ONDANSETRON HCL 8 MG TABLET Take 1 tablet by mouth every * LOPERAMIDE 2 MG TABLET Take 2 tabs po x1 now and the* RANITIDINE 300 MG TABLET Take 1 tablet by mouth daily * Patient taking differently: Take 300 mg by mouth as neede* Problem List As Of Date 12/11/2017 Noted Resolved GERD (gastroesophageal reflux disease) [K21.9] INVALID FOR* Priority: A Obesity, unspecified [E66.9] INVALID FOR* Priority: B Seasonal allergies [J30.2] INVALID FOR* Priority: B Decreased hearing of left ear [H91.92] INVALID FOR* Priority: B More... Well adult exam [Z00.00] INVALID FOR*09/24/2016 Priority: E More... Multiple lipomas [D17.9] INVALID FOR* Priority: D More... Encounter for screening for diabetes mellitus [*INVALID FOR* Elevated blood-pressure reading without diagnos*INVALID FOR* Dyslipidemia [E78.5] INVALID FOR* Priority: A Prescriptions ordered this encounter Disp Refills Start End PANTOPRAZOLE 20 MG TABLET,DELAYED RE* 30 t* 3 12/11/2017 Route: ORAL Sig: Take 1 tablet by mouth once daily. SUCRALFATE 1 GRAM TABLET 120 * 2 12/11/2017 Sig: Take with a swallow of water. Wait at least 30 minutes before eating/drinking. Follow-up and Disposition History Recorded Encounter Status:Closed by ОЛЬГА SAN CNP on 12/11/17 PROGRESS Observed: 11/17/2017 Status: COMPLETED Source: [place] 3:23 PM [facility] REPOSITORY HNO ID: [id number] Author: Karissa Sales Service: (none) Author Type: Physician Type: Progress Notes Filed: 11/20/2017 9:49 PM Note Text: Chief Complaint Patient presents with: Recheck HPI Asher Mccauley is a 37 year old male who presents here today for Chronic Medical Conditions.. Patient with Hx as reviewed and documented below. Has been doing ok. Not needing the zantac daily. Maybe just once a week. Has made some dietary changes and has lost about 11 lbs. Notes he seems to feel worse in the abdomen at times, like a sick feeling on the right side. Past medical history, appointments, medications, allergies reviewed. Previous Medical History PAST MEDICAL HISTORY Diagnosis Date - GERD (gastroesophageal reflux disease) - Obesity - Rectal bleeding 09/23/2014 - Seasonal allergies 03/04/2016 Previous Surgical History PAST SURGICAL HISTORY Procedure Laterality Date - COLONOSCOPY 10/02/2017 Dr. Khan, repeat 10 yrs - COLONS W/REM POLYP HT BX 09/23/2014 Repeat 2017 - EGD W/O OR W/BRUSH/WASH 02/04/15 EGD - LAPAROSCOPIC CHOLEYCYSTECTOMY 04/06/2016 - LAPAROSCOPY, SURGICAL, APPENDECTOMY 02/10/14 with umbilical hernia and appendix - PAST SURGICAL HISTORY OF wisdom teeth Family History FAMILY HISTORY Problem Relation Age of Onset - Asthma Mother - Allergies Mother - Breast Cancer Paternal Grandmother - Cancer Maternal Grandfather pancreatic - Cancer Maternal Grandmother pancreatic Patient Allergies ALLERGIES Allergen Reactions - Clindamycin Diarrhea - Seasonal Allergies Other: See Comments Symptoms vary Current Medications Current Outpatient Prescriptions on File Prior to Visit: loratadine (CLARITIN) 10 mg tablet Take 1 tablet by mouth once daily. ondansetron (ZOFRAN) 8 mg tablet Take 1 tablet by mouth every 8 hours as needed. Loperamide HCl (IMODIUM A-D) 2 mg tab Take 2 tabs po x1 now and then take 1 tab po after each loose stool. Ranitidine HCl (ZANTAC) 300 mg tablet Take 1 tablet by mouth daily at bedtime. (Patient taking differently: Take 300 mg by mouth as needed. ) No current facility-administered medications on file prior to visit. Social History Social History Marital status: Single Spouse name: Years of education: Number of children: 1 Social History Main Topics Smoking status: Never Smoker Smokeless tobacco: Never Used Alcohol use: Yes Comment: seldom Drug use: No Review of Symptoms REVIEW OF SYSTEMS NECK: Negative for lumps, goiter, pain and significant neck swelling RESPIRATORY: Negative for cough, hemoptysis, wheezing, COPD, dyspnea or shortness of breath CARDIOVASCULAR: Negative for chest pain, leg swelling, hypertension, CHF or palpitations GI: No nausea, vomiting, or diarrhea and See HPI EXAM: BP 142/102 (BP Site: Right Arm, BP Position: Sitting, BP Cuff Size: Large Adult) Pulse 68 Resp 18 Wt 106.1 kg (233 lb 12.8 oz) BMI 31.71 kg/m? Last 10 Encounter Wt Readings: Date: Wt: 11/17/2017 106.1 kg (233 lb 12.8 oz) 10/09/2017 102.1 kg (225 lb) 10/06/2017 105.7 kg (233 lb) 08/08/2017 109.3 kg (241 lb) 05/01/2017 107.5 kg (237 lb) 03/31/2017 108.1 kg (238 lb 6.4 oz) 02/08/2017 108.9 kg (240 lb) 02/06/2017 108.9 kg (240 lb) 01/09/2017 110.7 kg (244 lb) 10/10/2016 110.7 kg (244 lb) General Appearance: Well appearing, alert, in no acute distress, well-hydrated, well nourished.. Neck: Supple, no adenopathy; thyroid symmetric, normal size, no bruits. Lungs: Lungs clear to auscultation. No wheezing, rhonchi, rales. Heart: RRR without murmur, gallop, or rubs. No ectopy. Abdomen: Normal abdominal exam, Abdomen soft, non-tender. Bowel sounds normal. No masses, organomegaly. Health Maintenance List LIPID SCREEN due on 10/06/2021 DTAP,TDAP,TD(2 - Td) due on 03/04/2026 COLORECTAL CANCER SCREENING,SEE MODIFIER due on 10/03/2027 INFLUENZA Completed Data reviewed A/P ASSESSMENT/PLAN: 1. Dyslipidemia - ICD9: 272.4, ICD10: E78.5 (primary diagnosis) - to be determined upon return of lab results - Encouraged following a low fat, low cholesterol diet. - Discussed the benefits of regular aerobic exercise and weight loss. - Encouraged following a low carbohydrate, healthy oil intake diet. - LIPID PANEL BASIC - COMP METABOLIC PANEL - URINALYSIS WITH MICROSCOPIC 2. Gastroesophageal reflux disease with esophagitis - ICD9: 530.11, ICD10: K21.0 - Continue treatment with Zantac 150 mg QD As needed - CONSULT TO GASTROENTEROLOGY 3. Right sided abdominal pain - ICD9: 789.09, ICD10: R10.9 Check - LIPASE BLD - AMYLASE BLD - CONSULT TO GASTROENTEROLOGY 4. Encounter for screening for diabetes mellitus - ICD9: V77.1, ICD10: Z13.1 Check - HGB A1C f/u 6 months WAE Time with patient face to face was 25 min Karissa Sales MD CNOV Observed: 11/17/2017 Status: COMPLETED Source: [place] 2:40 PM [facility] REPOSITORY Office Visit ([facility]) ASHER MCCAULEY ([id number]) 1980 M Date Time Provider Department 11/17/17 2:40 PM KARISSA SALES [facility] During your visit today, we recorded the following information about you: Pulse Respiration Blood pressure Weight 68/minute 18/minute 136/90 106.1 kg Karissa Sales MD 11/20/2017 9:49 PM Signed Chief Complaint Patient presents with: Recheck HPI Asher Gibson Garrick is a 37 year old male who presents here today for Chronic Medical Conditions.. Patient with Hx as reviewed and documented below. Has been doing ok. Not needing the zantac daily. Maybe just once a week. Has made some dietary changes and has lost about 11 lbs. Notes he seems to feel worse in the abdomen at times, like a sick feeling on the right side. Past medical history, appointments, medications, allergies reviewed. Previous Medical History PAST MEDICAL HISTORY Diagnosis Date - GERD (gastroesophageal reflux disease) - Obesity - Rectal bleeding 09/23/2014 - Seasonal allergies 03/04/2016 Previous Surgical History PAST SURGICAL HISTORY Procedure Laterality Date - COLONOSCOPY 10/02/2017 Dr. Khan, repeat 10 yrs - COLONS W/REM POLYP HT BX 09/23/2014 Repeat 2018 - EGD W/O OR W/BRUSH/WASH 02/04/15 EGD - LAPAROSCOPIC CHOLEYCYSTECTOMY 04/06/2016 - LAPAROSCOPY, SURGICAL, APPENDECTOMY 02/10/14 with umbilical hernia and appendix - PAST SURGICAL HISTORY OF wisdom teeth Family History FAMILY HISTORY Problem Relation Age of Onset - Asthma Mother - Allergies Mother - Breast Cancer Paternal Grandmother - Cancer Maternal Grandfather pancreatic - Cancer Maternal Grandmother pancreatic Patient Allergies ALLERGIES Allergen Reactions - Clindamycin Diarrhea - Seasonal Allergies Other: See Comments Symptoms vary Current Medications Current Outpatient Prescriptions on File Prior to Visit: loratadine (CLARITIN) 10 mg tablet Take 1 tablet by mouth once daily. ondansetron (ZOFRAN) 8 mg tablet Take 1 tablet by mouth every 8 hours as needed. Loperamide HCl (IMODIUM A-D) 2 mg tab Take 2 tabs po x1 now and then take 1 tab po after each loose stool. Ranitidine HCl (ZANTAC) 300 mg tablet Take 1 tablet by mouth daily at bedtime. (Patient taking differently: Take 300 mg by mouth as needed. ) No current facility-administered medications on file prior to visit. Social History Social History Marital status: Single Spouse name: Years of education: Number of children: 1 Social History Main Topics Smoking status: Never Smoker Smokeless tobacco: Never Used Alcohol use: Yes Comment: seldom Drug use: No Review of Symptoms REVIEW OF SYSTEMS NECK: Negative for lumps, goiter, pain and significant neck swelling RESPIRATORY: Negative for cough, hemoptysis, wheezing, COPD, dyspnea or shortness of breath CARDIOVASCULAR: Negative for chest pain, leg swelling, hypertension, CHF or palpitations GI: No nausea, vomiting, or diarrhea and See HPI EXAM: BP 142/102 (BP Site: Right Arm, BP Position: Sitting, BP Cuff Size: Large Adult) Pulse 68 Resp 18 Wt 106.1 kg (233 lb 12.8 oz) BMI 31.71 kg/m? Last 10 Encounter Wt Readings: Date: Wt: 11/17/2017 106.1 kg (233 lb 12.8 oz) 10/09/2017 102.1 kg (225 lb) 10/06/2017 105.7 kg (233 lb) 08/08/2017 109.3 kg (241 lb) 05/01/2017 107.5 kg (237 lb) 03/31/2017 108.1 kg (238 lb 6.4 oz) 02/08/2017 108.9 kg (240 lb) 02/06/2017 108.9 kg (240 lb) 01/09/2017 110.7 kg (244 lb) 10/10/2016 110.7 kg (244 lb) General Appearance: Well appearing, alert, in no acute distress, well-hydrated, well nourished.. Neck: Supple, no adenopathy; thyroid symmetric, normal size, no bruits. Lungs: Lungs clear to auscultation. No wheezing, rhonchi, rales. Heart: RRR without murmur, gallop, or rubs. No ectopy. Abdomen: Normal abdominal exam, Abdomen soft, non-tender. Bowel sounds normal. No masses, organomegaly. Health Maintenance List LIPID SCREEN due on 10/06/2021 DTAP,TDAP,TD(2 - Td) due on 03/04/2026 COLORECTAL CANCER SCREENING,SEE MODIFIER due on 10/03/2027 INFLUENZA Completed Data reviewed A/P ASSESSMENT/PLAN: 1. Dyslipidemia - ICD9: 272.4, ICD10: E78.5 (primary diagnosis) - to be determined upon return of lab results - Encouraged following a low fat, low cholesterol diet. - Discussed the benefits of regular aerobic exercise and weight loss. - Encouraged following a low carbohydrate, healthy oil intake diet. - LIPID PANEL BASIC - COMP METABOLIC PANEL - URINALYSIS WITH MICROSCOPIC 2. Gastroesophageal reflux disease with esophagitis - ICD9: 530.11, ICD10: K21.0 - Continue treatment with Zantac 150 mg QD As needed - CONSULT TO GASTROENTEROLOGY 3. Right sided abdominal pain - ICD9: 789.09, ICD10: R10.9 Check - LIPASE BLD - AMYLASE BLD - CONSULT TO GASTROENTEROLOGY 4. Encounter for screening for diabetes mellitus - ICD9: V77.1, ICD10: Z13.1 Check - HGB A1C f/u 6 months WAE Time with patient face to face was 25 min Karissa Sales MD Referring Provider: HERNÁN KANG ([facility]) [[id number]] Allergies As of Date: 11/17/2017 Noted Allergy Reaction CLINDAMYCIN 10/07/2017 6 - Diarrhea SEASONAL ALLERGIES 03/04/2016 14 - Other: See Comments Comments: Symptoms vary Date Reviewed: 11/17/2017 Reviewed by: Karissa Sales - Fully Assessed Reason for Visit: Recheck [92] Primary Visit Diagnosis:Dyslipidemia [E78.5] Other Visit Diagnoses:Gastroesophageal reflux disease with esophagitis [K21.0] Right sided abdominal pain [R10.9] Encounter for screening for diabetes mellitus [Z13.1] Elevated blood pressure reading in office without diagnosis of hypertension [R03.0] Order(s):LIPID PANEL BASIC [SQLIPB] Order #: [id number] FUTURE COMP METABOLIC PANEL [SQCMP] Order #: [id number] FUTURE HGB A1C [BNQIC5A] Order #: [id number] FUTURE URINALYSIS WITH MICROSCOPIC [SQUAWMIC] Order #: [id number] FUTURE LIPASE BLD [SQLIPA] Order #: [id number] FUTURE AMYLASE BLD [SQAMYL] Order #: [id number] FUTURE CONSULT TO GASTROENTEROLOGY [9010] Order #: [id number]: 1 Prescriptions as of 11/17/2017 Sig: LORATADINE 10 MG TABLET Take 1 tablet by mouth once d* ONDANSETRON HCL 8 MG TABLET Take 1 tablet by mouth every * LOPERAMIDE 2 MG TABLET Take 2 tabs po x1 now and the* RANITIDINE 300 MG TABLET Take 1 tablet by mouth daily * Patient taking differently: Take 300 mg by mouth as neede* Problem List As Of Date 11/17/2017 Noted Resolved GERD (gastroesophageal reflux disease) [K21.9] INVALID FOR* Priority: A Obesity, unspecified [E66.9] INVALID FOR* Priority: B Seasonal allergies [J30.2] INVALID FOR* Priority: B Decreased hearing of left ear [H91.92] INVALID FOR* Priority: B More... Well adult exam [Z00.00] INVALID FOR*09/24/2016 Priority: E More... Multiple lipomas [D17.9] INVALID FOR* Priority: D More... Encounter for screening for diabetes mellitus [*INVALID FOR* Elevated blood-pressure reading without diagnos*INVALID FOR* Dyslipidemia [E78.5] INVALID FOR* Priority: A Disposition: Return in about 6 months (around 05/20/2018) for complete PE. Follow-up and Disposition History Recorded Encounter Status:Closed by KARISSA SALES on 11/20/17 PROGRESS Observed: 10/09/2017 Status: COMPLETED Source: [place] 10:25 AM [facility] REPOSITORY O ID: [id number] Author: Cricket Elmore) Steven Service: (none) Author Type: Physician Corn Crop Supervisor Type: Progress Notes Filed: 10/09/2017 10:53 AM Note Text: Chief Complaint Patient presents with: Pain: Patient here for abdomen pain; nausea and diarrhea HPI Asher Mccauley is a 37 year old male who presents here today for Acute onset of n/v/d after starting antibiotic... Patient had n/v/d on 10/05/17 and saw us on 10/06/17. At that time there was question on whether tooth abscess was causing patient's symptoms. So was treated with antibiotics and that just made symptoms worse. Has not taken atb since Monday Still c/o of nausea and diarrhea. Not running a fever any more and hasn't vomited since early Sat morning. Tolerating liquids but has lack of appetite Multiple diarrhea episodes per day, but improving. Past medical history, appointments, medications, allergies reviewed. Previous Medical History PAST MEDICAL HISTORY Diagnosis Date - GERD (gastroesophageal reflux disease) - Obesity - Rectal bleeding 09/23/2014 - Seasonal allergies 03/04/2016 Previous Surgical History PAST SURGICAL HISTORY Procedure Laterality Date - COLONOSCOPY 10/02/2017 Dr. Khan, repeat 10 yrs - COLONS W/REM POLYP HT BX 09/23/2014 Repeat 2018 - EGD W/O OR W/BRUSH/WASH 02/04/15 EGD - LAPAROSCOPIC CHOLEYCYSTECTOMY 04/06/2016 - LAPAROSCOPY, SURGICAL, APPENDECTOMY 02/10/14 with umbilical hernia and appendix - PAST SURGICAL HISTORY OF wisdom teeth Family History FAMILY HISTORY Problem Relation Age of Onset - Asthma Mother - Allergies Mother - Breast Cancer Paternal Grandmother - Cancer Maternal Grandfather pancreatic - Cancer Maternal Grandmother pancreatic Patient Allergies ALLERGIES Allergen Reactions - Clindamycin Diarrhea - Seasonal Allergies Other: See Comments Symptoms vary Current Medications Current Outpatient Prescriptions on File Prior to Visit: Ranitidine HCl (ZANTAC) 300 mg tablet Take 1 tablet by mouth daily at bedtime. (Patient taking differently: Take 300 mg by mouth as needed. ) loratadine (CLARITIN) 10 mg tablet Take 1 tablet by mouth once daily. cefdinir (OMNICEF) 300 mg capsule Take 1 capsule by mouth twice daily for 10 days. No current facility-administered medications on file prior to visit. Social History Social History Marital status: Single Spouse name: Years of education: Number of children: 1 Social History Main Topics Smoking status: Never Smoker Smokeless status: Never Used Alcohol use: Yes Comment: seldom Drug use: No Review of Symptoms REVIEW OF SYSTEMS GENERAL: No weight loss, malaise or fevers, See HPI RESPIRATORY: Negative for cough, hemoptysis, wheezing, COPD, dyspnea or shortness of breath CARDIOVASCULAR: Negative for chest pain, leg swelling, hypertension, CHF or palpitations GI: See HPI EXAM: BP 102/74 Pulse 88 Temp 36.6 ?C (97.8 ?F) (Tympanic) Resp 14 Wt 102.1 kg (225 lb) BMI 30.52 kg/m2 General Appearance: Well appearing, alert, in no acute distress, well-hydrated, well nourished.. Oropharynx: Lips, mucosa, and tongue normal, teeth and gums normal, oropharynx normal. Neck: Supple, no adenopathy; thyroid symmetric, normal size, no bruits. Lungs: Lungs clear to auscultation. No wheezing, rhonchi, rales. Heart: RRR without murmur, gallop, or rubs. No ectopy. Abdomen: Normal abdominal exam, Abdomen soft, non-tender. Bowel sounds normal. No masses, organomegaly. Health Maintenance List LIPID SCREEN due on 10/06/2021 TETANUS due on 03/04/2026 COLORECTAL CANCER SCREENING,SEE MODIFIER due on 10/03/2027 INFLUENZA Completed ASSESSMENT/PLAN: 1. Viral gastroenteritis - ICD9: 008.8, ICD10: A08.4 Suspect viral etiology of n/v/d that is improving but was worsened while taking antibiotics. Start the zofran. May use imodium as needed. Push fluids and rest. Follow up in 1 week if no improvement or sooner for worsening symptoms. ELIF LEES CNOV Observed: 10/09/2017 Status: COMPLETED Source: [place] 10:20 AM [facility] REPOSITORY Office Visit (FAMPWS) LUZ MARINAASHER GARCIA ([id number]) 1980 M Date Time Provider Department 10/09/17 10:20 AM CRICKET HARRIS (ELIF) FAMPWS During your visit today, we recorded the following information about you: Temperature Pulse Respiration Blood pressure 97.8 degrees 88/minute 14/minute 102/74 Weight 102.1 kg ELIF LEES 10/09/2017 10:53 AM Signed Chief Complaint Patient presents with: Pain: Patient here for abdomen pain; nausea and diarrhea HPI Asher Gibson Garrick is a 37 year old male who presents here today for Acute onset of n/v/d after starting antibiotic... Patient had n/v/d on 10/05/17 and saw us on 10/06/17. At that time there was question on whether tooth abscess was causing patient's symptoms. So was treated with antibiotics and that just made symptoms worse. Has not taken atb since Monday Still c/o of nausea and diarrhea. Not running a fever any more and hasn't vomited since early Sat morning. Tolerating liquids but has lack of appetite Multiple diarrhea episodes per day, but improving. Past medical history, appointments, medications, allergies reviewed. Previous Medical History PAST MEDICAL HISTORY Diagnosis Date - GERD (gastroesophageal reflux disease) - Obesity - Rectal bleeding 09/23/2014 - Seasonal allergies 03/04/2016 Previous Surgical History PAST SURGICAL HISTORY Procedure Laterality Date - COLONOSCOPY 10/02/2017 Dr. Khan, repeat 10 yrs - COLONS W/REM POLYP HT BX 09/23/2014 Repeat 2018 - EGD W/O OR W/BRUSH/WASH 02/04/15 EGD - LAPAROSCOPIC CHOLEYCYSTECTOMY 04/06/2016 - LAPAROSCOPY, SURGICAL, APPENDECTOMY 02/10/14 with umbilical hernia and appendix - PAST SURGICAL HISTORY OF wisdom teeth Family History FAMILY HISTORY Problem Relation Age of Onset - Asthma Mother - Allergies Mother - Breast Cancer Paternal Grandmother - Cancer Maternal Grandfather pancreatic - Cancer Maternal Grandmother pancreatic Patient Allergies ALLERGIES Allergen Reactions - Clindamycin Diarrhea - Seasonal Allergies Other: See Comments Symptoms vary Current Medications Current Outpatient Prescriptions on File Prior to Visit: Ranitidine HCl (ZANTAC) 300 mg tablet Take 1 tablet by mouth daily at bedtime. (Patient taking differently: Take 300 mg by mouth as needed. ) loratadine (CLARITIN) 10 mg tablet Take 1 tablet by mouth once daily. cefdinir (OMNICEF) 300 mg capsule Take 1 capsule by mouth twice daily for 10 days. No current facility-administered medications on file prior to visit. Social History Social History Marital status: Single Spouse name: Years of education: Number of children: 1 Social History Main Topics Smoking status: Never Smoker Smokeless status: Never Used Alcohol use: Yes Comment: seldom Drug use: No Review of Symptoms REVIEW OF SYSTEMS GENERAL: No weight loss, malaise or fevers, See HPI RESPIRATORY: Negative for cough, hemoptysis, wheezing, COPD, dyspnea or shortness of breath CARDIOVASCULAR: Negative for chest pain, leg swelling, hypertension, CHF or palpitations GI: See HPI EXAM: BP 102/74 Pulse 88 Temp 36.6 ?C (97.8 ?F) (Tympanic) Resp 14 Wt 102.1 kg (225 lb) BMI 30.52 kg/m2 General Appearance: Well appearing, alert, in no acute distress, well-hydrated, well nourished.. Oropharynx: Lips, mucosa, and tongue normal, teeth and gums normal, oropharynx normal. Neck: Supple, no adenopathy; thyroid symmetric, normal size, no bruits. Lungs: Lungs clear to auscultation. No wheezing, rhonchi, rales. Heart: RRR without murmur, gallop, or rubs. No ectopy. Abdomen: Normal abdominal exam, Abdomen soft, non-tender. Bowel sounds normal. No masses, organomegaly. Health Maintenance List LIPID SCREEN due on 10/06/2021 TETANUS due on 03/04/2026 COLORECTAL CANCER SCREENING,SEE MODIFIER due on 10/03/2027 INFLUENZA Completed ASSESSMENT/PLAN: 1. Viral gastroenteritis - ICD9: 008.8, ICD10: A08.4 Suspect viral etiology of n/v/d that is improving but was worsened while taking antibiotics. Start the zofran. May use imodium as needed. Push fluids and rest. Follow up in 1 week if no improvement or sooner for worsening symptoms. ELIF LEES Referring Provider: SELF [[id number]] Allergies As of Date: 10/09/2017 Noted Allergy Reaction CLINDAMYCIN 10/07/2017 6 - Diarrhea SEASONAL ALLERGIES 03/04/2016 14 - Other: See Comments Comments: Symptoms vary Date Reviewed: 10/09/2017 Reviewed by: Cricket Elmore) Steven - Fully Assessed Reason for Visit: Pain [78] Cmt: Patient here for abdomen pain; nausea and diarrhea Primary Visit Diagnosis:Viral gastroenteritis [A08.4] Order(s):ondansetron (ZOFRAN) 8 mg tabletTake 1 tablet by mouth every 8 hours as needed.Disp: 20 tabletRfl: 0 Loperamide HCl (IMODIUM A-D) 2 mg tabTake 2 tabs po x1 now and then take 1 tab po after each loose stool.Disp: 20 tabletRfl: 0 Prescriptions as of 10/09/2017 Sig: RANITIDINE 300 MG TABLET Take 1 tablet by mouth daily * Patient taking differently: Take 300 mg by mouth as neede* LORATADINE 10 MG TABLET Take 1 tablet by mouth once d* ONDANSETRON HCL 8 MG TABLET Take 1 tablet by mouth every * LOPERAMIDE 2 MG TABLET Take 2 tabs po x1 now and the* CEFDINIR 300 MG CAPSULE Take 1 capsule by mouth twice* Problem List As Of Date 10/09/2017 Noted Resolved GERD (gastroesophageal reflux disease) [K21.9] INVALID FOR* Priority: A Obesity, unspecified [E66.9] INVALID FOR* Priority: B Seasonal allergies [J30.2] INVALID FOR* Priority: B Decreased hearing of left ear [H91.92] INVALID FOR* Priority: B More... Well adult exam [Z00.00] INVALID FOR*09/24/2016 Priority: E More... Multiple lipomas [D17.9] INVALID FOR* Priority: D More... Encounter for screening for diabetes mellitus [*INVALID FOR* Elevated blood-pressure reading without diagnos*INVALID FOR* Dyslipidemia [E78.5] INVALID FOR* Priority: A Prescriptions ordered this encounter Disp Refills Start End ONDANSETRON HCL 8 MG TABLET 20 t* 0 10/09/2017 Route: ORAL Sig: Take 1 tablet by mouth every 8 hours as needed. LOPERAMIDE 2 MG TABLET 20 t* 0 10/09/2017 10/16/2017 Sig: Take 2 tabs po x1 now and then take 1 tab po after each loose stool. Disposition: Return if symptoms worsen or fail to improve. Follow-up and Disposition History Recorded Encounter Status:Closed by CRICKET HARRIS on 10/09/17 PROGRESS Observed: 10/06/2017 Status: COMPLETED Source: [place] 11:13 AM [facility] REPOSITORY HNO ID: [id number] Author: Savage Combs III Service: (none) Author Type: Physician Type: Progress Notes Filed: 10/06/2017 12:57 PM Note Text: SUBJECTIVE: This is a 37 year old male that is here today for pain in abd and back pain with fever 100-101. Had root canal R upper jaw yesterday. No sore throat, nasal congestion, cough. He was told by the dentist and he had a dental abscess and was treated with amoxicillin for 2 courses prior to the root canal. The amoxicillin seemed to give him some upset stomach. (I suspect it may have been Augmentin). Apparently the dentist did not recommend surgical drainage of the abscess. Patient denies any exposure to suspicious undercooked food and no redness family has similar symptoms. PAST MEDICAL HISTORY Diagnosis Date - GERD (gastroesophageal reflux disease) - Obesity - Rectal bleeding 09/23/2014 - Seasonal allergies 03/04/2016 Current Outpatient Prescriptions on File Prior to Visit: loratadine (CLARITIN) 10 mg tablet Take 1 tablet by mouth once daily. Ranitidine HCl (ZANTAC) 300 mg tablet Take 1 tablet by mouth daily at bedtime. (Patient taking differently: Take 300 mg by mouth as needed. ) No current facility-administered medications on file prior to visit. FAMILY HISTORY Problem Relation Age of Onset - Asthma Mother - Allergies Mother - Breast Cancer Paternal Grandmother - Cancer Maternal Grandfather pancreatic - Cancer Maternal Grandmother pancreatic Social History Substance Use Topics - Smoking status: Never Smoker - Smokeless tobacco: Never Used - Alcohol use Yes Comment: seldom BP 115/77 Pulse 108 Temp 37.8 ?C (100.1 ?F) (Tympanic) Resp 18 Wt 105.7 kg (233 lb) BMI 31.6 kg/m2 . OBJECTIVE: APPEARANCE patient does look ill and did become a little lightheaded sitting on the exam table. Mildly clammy skin THROAT no tenderness of the teeth of the upper right gum 3 does have some erythema of the right gum away from where the canal was performed. Throat appears normal and there are no mouth sores NECK palpable right anterior cervical node?no supraclavicular nodes HEART RRR with normal S1 and S2, no murmurs, no gallops, no JVD appreciated LUNG clear to auscultation ABDOMEN soft, non-tender, non-distended, without organomegaly or palpable masses, no tenderness to palpation ASSESS suspect bacteremia from dental abscess PLAN: clindamycin 300mg three times /day x 10 days ibuprofen and /or tylenol as needed for pain and fever stay well hydrated progress activity and diet as able follow-up with Dr. Sales?we did discuss possible need for oral surgeon for drainage of abscess PELON Montgomery MD, III MD CNOV Observed: 10/06/2017 Status: COMPLETED Source: [place] 10:40 AM [facility] REPOSITORY Office Visit (FAMPWS) ASHER MCCAULEY ([id number]) 1980 M Date Time Provider Department 10/06/17 10:40 AM SAVAGE COMBS IIIWS During your visit today, we recorded the following information about you: Temperature Pulse Respiration Blood pressure 100.1 degrees 108/minute 18/minute 115/77 Weight 105.7 kg Savage Combs III MD 10/06/2017 12:57 PM Signed SUBJECTIVE: This is a 37 year old male that is here today for pain in abd and back pain with fever 100-101. Had root canal R upper jaw yesterday. No sore throat, nasal congestion, cough. He was told by the dentist and he had a dental abscess and was treated with amoxicillin for 2 courses prior to the root canal. The amoxicillin seemed to give him some upset stomach. (I suspect it may have been Augmentin). Apparently the dentist did not recommend surgical drainage of the abscess. Patient denies any exposure to suspicious undercooked food and no redness family has similar symptoms. PAST MEDICAL HISTORY Diagnosis Date - GERD (gastroesophageal reflux disease) - Obesity - Rectal bleeding 09/23/2014 - Seasonal allergies 03/04/2016 Current Outpatient Prescriptions on File Prior to Visit: loratadine (CLARITIN) 10 mg tablet Take 1 tablet by mouth once daily. Ranitidine HCl (ZANTAC) 300 mg tablet Take 1 tablet by mouth daily at bedtime. (Patient taking differently: Take 300 mg by mouth as needed. ) No current facility-administered medications on file prior to visit. FAMILY HISTORY Problem Relation Age of Onset - Asthma Mother - Allergies Mother - Breast Cancer Paternal Grandmother - Cancer Maternal Grandfather pancreatic - Cancer Maternal Grandmother pancreatic Social History Substance Use Topics - Smoking status: Never Smoker - Smokeless tobacco: Never Used - Alcohol use Yes Comment: seldom BP 115/77 Pulse 108 Temp 37.8 ?C (100.1 ?F) (Tympanic) Resp 18 Wt 105.7 kg (233 lb) BMI 31.6 kg/m2 . OBJECTIVE: APPEARANCE patient does look ill and did become a little lightheaded sitting on the exam table. Mildly clammy skin THROAT no tenderness of the teeth of the upper right gum 3 does have some erythema of the right gum away from where the canal was performed. Throat appears normal and there are no mouth sores NECK palpable right anterior cervical node?no supraclavicular nodes HEART RRR with normal S1 and S2, no murmurs, no gallops, no JVD appreciated LUNG clear to auscultation ABDOMEN soft, non-tender, non-distended, without organomegaly or palpable masses, no tenderness to palpation ASSESS suspect bacteremia from dental abscess PLAN: clindamycin 300mg three times /day x 10 days ibuprofen and /or tylenol as needed for pain and fever stay well hydrated progress activity and diet as able follow-up with Dr. Sales?we did discuss possible need for oral surgeon for drainage of abscess PELON Montgomery MD, III MD Frank A Cebul, III MD 10/06/2017 11:27 AM Signed PLAN: clindamycin 300mg three times /day x 10 days ibuprofen and /or tylenol as needed for pain and fever stay well hydrated progress activity and diet as able Savage Combs III MD Referring Provider: SELF [200] Allergies As of Date: 10/06/2017 Noted Allergy Reaction SEASONAL ALLERGIES 03/04/2016 14 - Other: See Comments Comments: Symptoms vary Date Reviewed: 10/06/2017 Reviewed by: Christie ([facility]) CYNTHIA Ardon - Fully Assessed Reason for Visit: Possible flu [Other] Cmt: started last night, vomited AND diarrhea, fever, no ear pain, no throat pain Reason For Visit History Recorded Primary Visit Diagnosis:Dental abscess [K04.7] Order(s):clindamycin (CLEOCIN) 300 mg capsuleTake 1 capsule by mouth three times daily for 10 days.Disp: 30 capsuleRfl: 0 Prescriptions as of 10/06/2017 Sig: LORATADINE 10 MG TABLET Take 1 tablet by mouth once d* CLINDAMYCIN HCL 300 MG CAPSULE Take 1 capsule by mouth three* RANITIDINE 300 MG TABLET Take 1 tablet by mouth daily * Patient taking differently: Take 300 mg by mouth as neede* Problem List As Of Date 10/06/2017 Noted Resolved GERD (gastroesophageal reflux disease) [K21.9] INVALID FOR* Priority: A Obesity, unspecified [E66.9] INVALID FOR* Priority: B Seasonal allergies [J30.2] INVALID FOR* Priority: B Decreased hearing of left ear [H91.92] INVALID FOR* Priority: B More... Well adult exam [Z00.00] INVALID FOR*09/24/2016 Priority: E More... Multiple lipomas [D17.9] INVALID FOR* Priority: D More... Encounter for screening for diabetes mellitus [*INVALID FOR* Elevated blood-pressure reading without diagnos*INVALID FOR* Dyslipidemia [E78.5] INVALID FOR* Priority: A Other instructions from your clinician: PLAN: clindamycin 300mg three times /day x 10 days ibuprofen and /or tylenol as needed for pain and fever stay well hydrated progress activity and diet as able Savage Combs III MD Prescriptions ordered this encounter Disp Refills Start End CLINDAMYCIN HCL 300 MG CAPSULE 30 c* 0 10/06/2017 10/16/2017 Route: ORAL Sig: Take 1 capsule by mouth three times daily for 10 days. Medications Discontinued During This Encounter naproxen (NAPROSYN) 500 mg tablet 60 t* 0 05/01/2017 10/06/2017 Route: ORAL Sig: Take 1 tablet by mouth twice daily as needed. Take with food. Patient taking differently: Take 500 mg by mouth as needed. Take with food. Disc: Discontinued by Patient Encounter Status:Closed by SAVAGE COMBS III, MD on 10/06/17 OPERATIVE REPORT Observed: 10/02/2017 Status: F Source: [place] 7:44 AM [facility] REPOSITORY [facility] Medical Records Department [address] [place] [address] Operative Report 10/02/17 0740 MR#: [id number] Acct: [id number] Name: ASHER MCCAULEY Rep #: [id number] : 1980 37 From: Asher Khan MD PCP: Karissa Sales MD Status: REG [facility] Location: [place] [address] Problem List (1) Personal history of colonic polyps Status: Acute Report of Operation Date of Procedure: 10/02/17 Pre-Operative Diagnosis: z86.010 personal history of colonic polyps Post-Operative Diagnosis: Same Surgery/Procedure Performed:: 14291 colonoscopy Type of Anesthesia:: MAC Anesthesiologist: Fernando Mcgraw Description of Procedure: Patient was brought into the endoscopy suite and placed in the left lateral decubitus position. He was given graded anesthesia. Colonoscope was inserted into the rectum and directed through the sigmoid colon, descending colon, transverse colon, ascending colon, to the cecum. Operative findings: 1. Cecum: Normal appearance no mass lesions normal ileocecal valve. 2. Ascending colon: Normal appearance no mass lesions 3. Transverse colon: Normal appearance no mass lesions. 4. Descending colon: Normal appearance no mass lesions. 5. Sigmoid colon: Normal appearance no mass lesions. 6. Rectum: Normal appearance no mass lesions retroflexion showed a few internal hemorrhoids. Scope was withdrawn digital rectal exam was performed showing a smooth prostate with no nodules and no masses within the anus. Patient will need to have another colonoscopy in 10 years. 10/02/17 0744 <Electronically signed by Asher Khan MD> Date Asher Khan MD CC: Asher Khan MD; Karissa Sales MD Signed HISTORY AND PHYSICAL Observed: 10/02/2017 Status: F Source: [place] EXAM 7:40 AM [facility] REPOSITORY [facility] Medical Records Department [address] [place] [address] History and Physical 10/02/17 0737 MR#: [id number] Acct: [id number] Name: ASHER MCCAULEY Rep #: [id number] : 1980 37 From: Asher Khan MD PCP: Karissa Sales MD Status: [facility] Location: [place] [address] Problem List (1) Personal history of colonic polyps Status: Acute History of Present Illness Date of Admission: 10/02/17 The patient is a 37 year old M with past medical history of colon polyps. I saw him on 09/23/2014 and perform a colonoscopy on him. He was noted to have several polyps located throughout the colon a 10 mm one at the cecum 8 mm one in the sigmoid and a 3 mm colon polyp since then he has not had any further problems. Past Medical History Past Medical History (Chronic Problems): Chronic Problems (Last Reviewed 08/28/17 @ 07:54 by Asher Khan MD) Chronic abdominal pain (Chronic) Allergies No Known Allergies Allergy (Verified 08/28/17 07:50) Home Medications: Ambulatory Orders Medication Instructions Recorded ranitidine 300 mg tablet 300 mg PO QHS 08/28/17 Surgical History: appendectomy, cholecystectomy, herniorrhaphy Psychiatric History: No pertinent psych hx Smoking Status: Never smoker - *Family History Maternal History Items: Heart Disease Review of Systems Constitutional: Denies: Chills, Fever, Weight Change Eyes: Denies: Blurred vision, Pain, Redness, Vision Change HEENT: Denies: Dysphasia, Ear Pain, Eye Pain, Head Aches, Hearing Changes, Sore Throat Cardiovascular: Denies: Chest Pain, Chest Pressure, Chest Tightness, Palpitations Respiratory: Denies: Cough, Hemoptysis, Shortness of breath at rest, Shortness of breath upon exertion, Wheezing Gastrointestinal: Denies: Abdominal Pain, Constipation, Diarrhea, Hematemesis, Nausea, Melena, Vomiting Genitourinary: Denies: Dysuria, Frequency, Hematuria, Urgency Musculoskeletal: Denies: Joint Pain Skin: Denies: Lesions, Rash, Wounds Neurological: Denies: Change in Speech, Confusion, Numbness, Tingling, Seizures Psychiatric: Denies: Anxiety, Depression Endocrine: Denies: Heat/ Cold Intolerance, Polydipsia, Polyuria Hematologic/ Lymphatic: Denies: Adenopathy, Easy Bruising VTE Information - Inpt Only VTE Present on Admission: No VTE Mechan Device Prophylaxis: None VTE Pharm Prophylaxis ordered?: No Reason prophylaxis not ordered:: Treatment Not Indicated Patient Problems: Active and Suspected Problems (Last Reviewed 08/28/17 @ 07:54 by Asher Khan MD) Personal history of colonic polyps (Acute) - Physical Exam Lungs: Clear to auscultation Cardiovascular: Regular rate, Regular Rhythm, No murmurs Abdomen: Bowel Sounds Present, Soft, Non Tender, Non-Distended Vital Signs Temp Pulse Resp BP Pulse Ox 98.6 F 82 16 124/73 H 99 10/02/17 06:33 10/02/17 06:33 10/02/17 06:33 10/02/17 06:33 10/02/17 06:33 Oxygen Delivery Method Room Air Weight: 228 lb 13.437 oz Body Mass Index (BMI) 31.0 Assessment/Plan Active and Suspected Problems (Last Reviewed 08/28/17 @ 07:54 by Asher Khan MD) Personal history of colonic polyps (Acute) The plan is to perform a colonoscopy on him. 10/02/17 0740 <Electronically signed by Asher Khan MD> Date Asher Khan MD Cosigner Signature: Date (if applicable) CC: Asher Khan MD; Karissa Sales MD Signed SURGERY VISIT REPORT Observed: 08/28/2017 Status: F Source: [place] 7:55 AM [facility] [address] [id number] OFFICE VISIT Date of Service: 08/28/17 MR#: [id number] Acct: [id number] Name: ASHER MCCAULEY Rep #: [id number] : 1980 Provider: Asher Khan MD Age/Sex: 37/M Location: [facility] Status: Signed Intake Vital Signs08/28/17 Height 6 ft 08/28/17 Weight: 240 lb 08/28/17 Body Mass Index (BMI) 32.5 Intake Visit Reasons: Schedule Cscope Quality Process Auditor Required: No Is patient in pain?: No Allergies No Known Allergies Allergy (Verified 08/28/17 07:50) Medications ranitidine 300 mg tablet 300 mg PO QHS 08/28/17 [History Confirmed 08/28/17] PFS Medical History GERD (gastroesophageal reflux disease) (Acute) History of colon polyps (Acute) Surgical History History of appendectomy (Acute) History of colonoscopy (Acute) History of hernia surgery (Acute) History of laparoscopic cholecystectomy (Acute) Social History Smoking Status: Never smoker alcohol intake: current alcohol intake frequency: holidays/special occasions only HPI HPI HPI: ASHER MCCAULEY, is a 37 M who presents to the office today for evaluation for colonoscopy. I last saw him on 09/23/2014 and performed a colonoscopy on him. 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 He has not been having any problems with his bowel habits he has not noticed any blood he is not noticing any abdominal pain. He is complaining of some back pain. He takes occasional Zantac which controls his reflux and has had no new or recurrent symptoms of reflux. I do not think he will be due for another upper scope until 2019. ROS General General: No weight change, appetite, fatigue, colon cancer, breast cancer or weakness HEENT HEENT: No difficulty swallowing, eye injury, eye surgery, swollen glands or hoarseness Endo Endocrine: No thyroid disease, diabetes mellitus, thyroid cancer, Hair loss, heat intolerance or cold intolerance Skin Skin: No rash or changing moles Breast Breast: No left breast lump, right breast lump, nipple discharge, breast pain, abnormal mammogram, abnormal US or breast enlargement Musc Musculoskeletal: Yes back problems; no arthritis, rheumatoid arthritis, gout or joint pain Cardio Cardiovascular: No murmur, pacemaker, heart disease, atrial fibrillation, high blood pressure, heart attack, heart stent, palpitations, shortness of breat with exertion or chest pain Psych Psychiatric: No depression, anxiety or hearing voices Resp Respiratory: No shortness of breath, No sleep apnea, No cough, No COPD, No asthma, No emphysema, No wheezing Gastro Gastrointestinal: No abdominal pain, No nausea or vomiting, No diarrhea, No constipation, No blood in stool, Yes acid reflux, No hemorrhoids, No ulcers, Yes gallbladder problem, No black,tarry stools Akin Hematologic: No blood thinners, No blood disorders, No bleeding, No anemia, No blood clots Neuro Neurologic: No system reviewed and no additional complaints, except as docu, No as per HPI, No abnormal walking, No abnormal hearing, No abnormal movements, No abnormal speech, No behavioral changes, No burning sensations, No confusion, No seizure-like activity, No unsteadiness, No dizziness, No localized weakness, No frequent falls, No headache(s), No lack of coordination, No loss of vision, No memory loss, No numbness, No other visual disturbances, No radiating pain, No restless legs, No sensory deficit, No fainting, No tingling, No tremor(s), No weakness, No other Exam Const General: well developed, no acute distress, well hydrated Orientation: oriented to person, oriented to place, oriented to time [facility] Head: normocephalic, atraumatic Ears: external ears normal Mouth: moist mucous membranes Eyes Sclera: sclerae normal Pupils: normal by confrontation Neck Neck: no lymphadenopathy noted Neck mass: No Thyroid: symmetrical, thyroid normal Chest Chest palpation AND inspection: normal inspection of the chest Breast Palpation: No nipple discharge Resp Effort AND Inspection: normal respiratory effort Auscultation: clear to auscultation bilaterally Percussion: percussion normal Cardio Rate: regular rate Rhythm: regular rhythm Heart Sounds: no murmurs GI Palpation: soft, no masses, no hepatosplenomegaly, nontender Rectal Exam: other Other: Rectal exam deferred. Extrem General: no clubbing, cyanosis or edema, normal to inspection Assessment AND Plan Problems 1. History of colon polyps Z86.010 Plan I have discussed the above with the patient. I have offered the patient colonoscopy for evaluation. I have explained the risks/benefits of the procedure and described the procedure. I have discussed the risks with the patient, including but not limited to: infection, bleeding, perforation of the GI tract requiring emergency surgery, inability to complete the procedure, injury to any internal organs, complications of anesthesia, etc. - the patient understands and agrees to proceed. I have answered all the patient's questions to the patient's satisfaction and the patient has no further questions. The patient has been given instructions for the colon cleansing preparation. Coding Level of Care Code Off vis,new,level 3 Diagnoses History of colon polyps Z86.010 08/28/17 0755 <Electronically signed by Asher Khan MD> Date Asher Khan MD Cosigner Signature: Date (if applicable) CC: Karissa Sales MD PROGRESS Observed: 08/08/2017 Status: COMPLETED Source: [place] 11:25 AM [facility] REPOSITORY [facility] ID: [id number] Author: Hernán Graves (Content Publisher) GABRIELE Kang Service: (none) Author Type: Nurse Practitioner Type: Progress Notes Filed: 08/08/2017 12:11 PM Note Text: HPI/CC: Asher Mccauley is a 37 year old male who presents to the office today for HTN. Patient states that he is feeling well and denies any symptoms referable to elevated blood pressure. Specifically denies headache, chest pain, palpitations, dyspnea, peripheral edema, dizziness, syncope and fatigue. Had elevated BP at chiropractor and at [facility] pharmacy. Last 3 Encounter BP Readings: Date: BP: 08/08/2017 136/102 05/01/2017 124/88 03/31/2017 128/84 He watches his diet for sodium, low fat and low cholesterol generally not very much. He does not check BP's generally. Asher denies regular aerobic exercise-patient is active, farming and hunting Requesting order for colonoscopy- recommended every 3 years- followed by Dr. Khan REVIEW OF SYSTEMS: as above Reviewed relevant PMHx, PSHx, Social Hx, current medications and allergies. PHYSICAL EXAMINATION: BP 126/85 Pulse 76 Resp 16 Wt 109.3 kg (241 lb) BMI 32.69 kg/m2 General appearance: Well appearing, alert, in no acute distress, well-hydrated, well nourished. Skin: Skin color, texture, turgor normal, no suspicious rashes or lesions Lungs: Lungs clear to auscultation. No wheezing, rhonchi, rales Heart: RRR without murmur, gallop, or rubs. No ectopy ASSESSMENT/PLAN: 1. Elevated BP without diagnosis of hypertension - ICD9: 796.2, ICD10: R03.0 (primary diagnosis) [place] [facility] [place] patient [place] - f/u in 3 months or before as needed 2. Abdominal pain, unspecified abdominal location - ICD9: 789.00, ICD10: R10.9 3. Polyp of colon, unspecified part of colon, unspecified type - ICD9: 211.3, ICD10: K63.5 - CONSULT TO GASTROENTEROLOGY Hernán Kang CNP ALLERGIES ALLERGIES DATE TYPE / CODE NAME / CODE REACTION SEVERITY SOURCE 06/12/2018 Drug No Known Unknown [place] Allergy/416 Allergies/[id number] [facility] [id number]([place] [address]([facility]NORM[facility] ED [facility] Repository 10/07/2017 DRUG CLINDAMYCIN DIARRHEA [facility] INGREDI/419 [facility] 184889([place] [place] [facility] Repository ED CT) 10/07/2017 DRUG CLINDAMYCIN DIARRHEA [facility] INGREDI419 [facility] 648867([facility] [place] [facility] Repository ED CT) 03/04/2016 Environ/420 SEASONAL ALLERGIES OTHER: SEE [facility] 462661([facility] ED CT) Repository 03/04/2016 Environ/420 SEASONAL ALLERGIES OTHER: SEE [facility] 590513([facility] ED CT) Repository ENCOUNTERS ENCOUNTERS ADMIT/DISCHARGE ACCOUNT ADMITTING ENCOUNTER LOCATION SOURCE NUMBER CLASS 07/16/2018/07/17/19 [id number] Ambulatory [address] Main [place] Repository 06/25/2018 [id number] Ambulatory [facility] Other [place] Repository 06/25/2018 [id number] Ambulatory [facility] Other [place] Repository 06/13/2018/06/14/20 [id number] Ambulatory [address] [place] Repository 06/12/2018/06/12/20 [id number] Emergency [address] ing:ED Repository 06/11/2018/06/12/20 [id number] Ambulatory [address] [place] Repository 03/05/2018/03/05/20 [id number] Ambulatory [address] [place] Repository 12/15/2017/12/20/19 [id number] Ambulatory [address] [place] Repository 12/12/2017/12/13/19 [id number] Ambulatory [address] [place] Repository 12/11/2017/12/13/19 [id number] Ambulatory [address] [place] Repository 11/17/2017/11/22/19 [id number] Ambulatory [address] [place] Repository 10/09/2017/10/11/19 [id number] Ambulatory [address] [place] Repository 10/06/2017/12/01/19 [id number] Ambulatory [address] [place] Repository 10/02/2017/10/03/19 [id number] Ambulatory [address] ing:[place] Repository 10/02/2017 [id number] Ambulatory BMSBuilding:Eric [place]ves MS.CF.[facility] Repository 08/28/2017/08/29/19 [id number] Ambulatory BMSBuilding:B [place] [address] [place].[facility] Repository 08/08/2017/08/08/19 [id number] Ambulatory [address] Repository PAYERS PAYERS ENCOUNTER GUARANTOR PAYER SUBSCRIBER SOURCE 06/12/2018 ASHER Gibson Primary ASHER [id number] [facility] [id number], Number: Repository [place] [address]Nla: [id number] Date:[id number] BOX (HP) [address] [address]SD: 06/12/2018 Secondary NOT GIVENUNK [place] Insurance:SELF PAY [facility] Number: Effective Repository Date:2018-06-12 10/02/2017 ASHER Gibson Primary ASHER R [place] [id number] Insurance[place] [facility] [id number], Number: Repository [place] [address]Wmj: [id number] Date:8889-30-65AW BOX () [address] [place] [id number]: 10/02/2017 Secondary NOT GIVENUNK [place] Insurance:SELF PAY [facility] Number: Effective Repository Date:2017-08-28 10/02/2017 ASHER Gibson Primary ASHER R [place] [id number] Insurance:[place]: [facility] [id number], Number: Repository [place] [address]Uqw: [id number] Date:5630-67-95NH BOX () [address] [place] [phone]: 10/02/2017 Secondary NOT GIVENUNK [place] Insurance:SELF PAY [facility] Number: Effective Repository Date:2017-10-02 08/28/2017 ASHER Gibson Primary ASHER R [place] [id number] Insurance[facility]: [facility] [id number], Number: Repository [place] [address]Ibu: [id number] Date:3153-67-37UL BOX () [address] [place] [id number]: 08/28/2017 Secondary NOT GIVENUNK [place] Insurance:SELF PAY [facility] Number: Effective Repository Date:2017-08-25
== END 2018-06-12 18:04 | disposition home or self-care (01) ==
LOC: ED 15:59
PROVIDERS: Emergency Provider Emergency Medicine; Family Provider Family Medicine; PCP Family Medicine
DX: R07.9 Chest pain, unspecified (principal); I48.0 Paroxysmal atrial fibrillation; K30 Functional dyspepsia; K21.9 Gastro-esophageal reflux disease without esophagitis; Z79.899 Other long term (current) drug therapy
CPT/HCPCS: 71045; 80048; 84484; 85025; 93005; 96360; 96361; 99285; J7030; A4216

== ENCOUNTER 2019-01-13 22:57 | Emergency (ER) | payer OTHER, SELFPAY ==
--- NOTE | 2019-01-13 11:50 | RAD_ITS ---
STUDY: X-RAY CHEST REASON FOR EXAM: Male, 38 years old. Chest pain radiating to left arm. TECHNIQUE: PA and lateral chest. COMPARISON: June 12, 2018. FINDINGS: The lungs are clear and expanded. There is no demonstrated pleural abnormality. Normal size heart. Normal mediastinum and christiano. Normal visualized pulmonary arteries. Normal visualized aortic arch and descending thoracic aorta. Normal visualized thoracic spine. Normal visualized ribs, clavicles, and shoulders. There is no demonstrated abnormality of the visualized soft tissue structures of the upper abdomen. RAD/Chest PA and Lateral IMPRESSION: Normal x-ray examination of the chest. Electronically Signed: To Marcial MD at 0:31 EDT , Service support ,
[2019-01-13 22:57] VITALS: BP 161/96; PULSE 75; RESP 18; TEMP 36.7; O2SAT 98; BMI 32.9
--- NOTE | 2019-01-13 23:35 | ED.DCSUM_ITS ---
History of Present Illness Chief Complaint: Chest Pain Informant: Patient Narrative: Presents with chest pain. Is been going on for 3 days. It lasts for hours at a time. It waxes and wanes. Is a left-sided pain. It is movement related. Current severity is mild to resolved. No home treatment. Denies any associated symptoms. Patient had a negative stress test in May. That was for indigestion related symptoms. He is never had any coronary artery disease. He does have a history of atrial fibrillation. He denies any cardiac pulmonary embolism or dissection risk factors. - Past Medical History (1) Atrial fibrillation with rapid ventricular response Status: Acute (2) Personal history of colonic polyps Status: Acute (3) Chronic abdominal pain Status: Chronic Past Medical History - Allergies and Home Meds Allergies/Adverse Reactions: Allergies No Known Allergies Allergy (Verified 01/13/19 23:00) Primary Care Physician: Yobani Rosario MD [Primary Care Provider] - Prior records reviewed: Yes Past Medical History: - - See problem list Surgical History: appendectomy, cholecystectomy, herniorrhaphy Smoking Status: Never smoker Alcohol: None Drugs: None - Family History Maternal Family History: Reports: Heart Disease Review of Systems General: Denies: Chills, Fever, Sweats Eyes: Denies: Visual changes - bilaterally, Diplopia ENT: Denies: Rhinorrhea, Sore throat Cardiovascular: Reports: Chest pain. Denies: Palpitations Respiratory: Denies: Dyspnea, Cough, Dyspnea on exertion Gastrointestinal: Denies: Abdominal pain, Nausea, Vomiting, Diarrhea, Melena, Hematochezia Genitourinary: Denies: Dysuria, Hematuria, Frequency Musculoskeletal: Denies: Back pain, Extremity Pain Skin: Denies: Rash, Wounds Neurological: Denies: Headache, Weakness, Numbness Physical Exam Vital Signs/Narrative: Vital Signs Temp Pulse Resp BP Pulse Ox 01/13/19 22:57 98.0 F 75 18 161/96 H 98 General: Well nourished, Well developed, No Acute Distress Head: Normocephalic, Atraumatic Eyes: Perrl, EOMI ENT: Moist mucous membranes, No rhinorrhea Neck: Supple, Nontender Cardiovascular: Regular rate, Regular rhythm, No murmurs Respiratory: No distress, CTA bilaterally, Chest nontender Abdomen: Soft, Nontender, Nondistended, Normal bowel sounds Back: Nontender, Normal Inspection Extremities: Nontender, No edema Skin: Normal color, No rash Neurological: Alert, Oriented x3, Cranial nerves II-XII grossly intact, Normal Strength, Normal Sensation Psychological: Normal affect, Normal Mood Diagnostic/Tx/Re-eval Impressions Chest X-Ray 01/13/19 11:50 IMPRESSION: Normal x-ray examination of the chest. Electronically Signed: To Marcial MD at 0:31 EDT , Service support , 01/13/19 11:50 Chest PA and Lateral [RAD] Stat Laboratory Results 01/13/19 01/13/19 23:10 23:10 WBC 8.4 RBC 5.02 Hgb 14.9 Hct 43.0 MCV 85.7 MCH 29.7 MCHC 34.7 RDW Std Deviation 37.8 RDW Coeff of Lazara 12.2 Plt Count 255 MPV 9.7 Immature Gran % (Auto) 0.200 Neut % (Auto) 54.6 Lymph % (Auto) 34.7 Bonner % (Auto) 8.1 Eos % (Auto) 1.8 Baso % (Auto) 0.6 Absolute Neuts (auto) 4.6 Absolute Lymphs (auto) 2.91 Absolute Nucleated RBC 0.00 Nucleated RBC % 0 Sodium 140 Potassium 3.6 Chloride 110 H Carbon Dioxide 27.0 Anion Gap 3 L BUN 15 Creatinine 1.11 Estim Creat Clear Calc 99.04 Est GFR (MDRD) Af Amer 95 Est GFR (MDRD) Non-Af 79 BUN/Creatinine Ratio 13.5 Glucose 125 H Calcium 9.0 Troponin I < 0.015 - Medical Decision Making EKG shows sinus rhythm at a rate of 67. No ischemic abnormalities. Patient does have T wave inversion inferiorly 3. This is unchanged from previous EKG. Lab work and chest x-ray obtained. Patient given a dose of aspirin. Lab work shows no acute abnormalities. Troponin is negative. CBC and electrolytes essentially unremarkable. Chest x-ray negative. Patient pain-free here. This could be costochondritis related symptoms. I do not think it is acute coronary syndrome PE or dissection. He has low risk for acute coronary syndrome. His heart score is low. He is PERC negative. I feel he can follow-up as an outpatient. ED Disposition - Plan for ED Patient: Disposition: Home or Assisted Living Diagnosis: Chest pain Instructions: CHEST PAIN, NonCardiac, CHEST WALL PAIN, Costochondritis Referrals: Yobani Rosario MD [Primary Care Provider] -
--- NOTE | 2019-01-13 23:46 | EKG12_ITS ---
Test Reason : CP Blood Pressure : / mmHG Vent. Rate : 067 BPM Atrial Rate : 067 BPM P-R Int : 166 ms QRS Dur : 106 ms QT Int : 392 ms P-R-T Axes : 023 -03 009 degrees QTc Int : 414 ms Normal sinus rhythm Normal ECG Confirmed by SWATHI GUAMAN, TONYA ([id number]), science editor PAUL GIMENEZ ([id number]) on 01/15/2019 1:37:40 PM Referred By: CONNOR Confirmed By:TONYA ECHEVARRIA MD
[2019-01-14] MEDS: Aspirin 81 MG TAB.CHEW 324 MG PO (00:06)
[2019-01-14 00:10] VITALS: BP 145/87; PULSE 70; RESP 16; O2SAT 95
[2019-01-14 00:18] LABS: Anion Gap 3 (5-15); BUN 15 mg/dL (7-18); BUN/Creat Ratio 13.5 RATIO (10-20); Chloride 110 mmol/L (98-107); Creatinine, Serum 1.11 mg/dL (0.70-1.30); EST Glomerular Filtration Rate 79 mL/min (>60); Est Glom Filt Rate - Afr Amer 95 mL/min (>60); Estimated Creatinine Clearance 99.04 ml/min; Glucose 125 mg/dL (74-106); Potassium 3.6 mmol/L (3.5-5.1); Sodium Level 140 mmol/L (136-145)
[2019-01-14 00:28] LABS: Absolute Lymphocyte Count 2.91 X10^3/uL (0.83-4.51); Absolute Neutrophil Count 4.6 X10^3/uL (2.0-7.7); Basophil# 0.05 X10^3/uL; Basophil% 0.6 % (0-1); Eosinophil# 0.15 X10^3/uL; Eosinophils% 1.8 % (0-5); Hemoglobin 14.9 g/dL (13.0-16.5); Lymphocyte # 2.91 X10^3/ul (4.0); Lymphocyte % 34.7 % (19-41); Mean Corp Hgb Conc 34.7 g/dL (32-36); Mean Corpuscular Hgb 29.7 pg (27.0-32.0); Mean Corpuscular Volume 85.7 fL (80-94); Mean Platelet Vol. 9.7 fl (6.2-12.0); Monocyte# 0.68 X10^3/uL; Monocyte% 8.1 % (0-10); NRBC Flagged by Analyzer 0 % (0-5); Neutrophil # 4.58 X10^3/uL (2.7-7.7); Neutrophil % 54.6 % (47-70); Platelet Count 255 K/mm3 (150-450); RBC Distribution Width CV 12.2 % (11.6-14.6); RBC Distribution Width SD 37.8 fl (35.1-43.9); Red Blood Count 5.02 M/mm3 (4.6-6.2); White Blood Count 8.4 K/mm3 (4.4-11.0)
[2019-01-14 00:52] VITALS: BP 134/84; PULSE 63; RESP 18; O2SAT 96
== END 2019-01-14 00:53 | disposition home or self-care (01) ==
PROVIDERS: Emergency Provider Emergency Medicine; Family Provider Family Medicine; PCP Family Medicine
DX: R07.9 Chest pain, unspecified (principal); R10.9 Unspecified abdominal pain; G89.29 Other chronic pain; I48.91 Unspecified atrial fibrillation; Z79.899 Other long term (current) drug therapy; Z86.010 Personal history of colon polyps; Z90.49 Acquired absence of other specified parts of digestive tract
CPT/HCPCS: 71046; 80048; 84484; 85025; 93005; 99285; A4216

== ENCOUNTER 2021-07-07 15:03 | Emergency (ER) | payer OTHER, SELFPAY ==
[2021-07-07 15:04] VITALS: BP 139/90; PULSE 91; RESP 18; TEMP 36.8; O2SAT 95; BMI 33.2
--- NOTE | 2021-07-07 15:13 | EKG12_ITS ---
Test Reason : PALP Blood Pressure : / mmHG Vent. Rate : 085 BPM Atrial Rate : 085 BPM P-R Int : 150 ms QRS Dur : 094 ms QT Int : 380 ms P-R-T Axes : 040 -25 019 degrees QTc Int : 452 ms Sinus rhythm with occasional Premature ventricular complexes Otherwise normal ECG Confirmed by FATUMA GUAMAN, ROGELIO ([id number]), editor map HERNÁN CHACON ([id number]) on 07/08/2021 1:40:44 PM Referred By: JOSE Confirmed By:DILLAN BURRIS MD
--- NOTE | 2021-07-07 15:28 | EX.ED.DYSGE1 ---
HPI History of Present Illness Chief Complaint: Palpitations Narrative Narrative: Patient with past medical history of previous atrial fibrillation, on atenolol, presents with his heart flopping. He has had this intermittently in the past. He states it started yesterday and he felt that sensation. It happened again today, so he came to the emergency department for evaluation. He denies any rapid heart rate, but states that he does feel his heart flopping on occasion. He denies any nausea or vomiting. No shortness of breath, no other symptoms. He does admit to using caffeinated products in the form of cola. No other symptoms. [facility] Medical History A-fib GERD (gastroesophageal reflux disease) History of colon polyps Home Medications atenolol 25 mg PO QHS 01/13/19 [History Last Taken Unknown] omeprazole magnesium 20 mg PO DAILY 01/13/19 [History Last Taken Unknown] Allergy/AdvReac Type Severity Reaction Status Date / Time No Known Allergies Allergy Verified 07/07/21 15:03 Surgical History History of appendectomy History of colonoscopy History of hernia surgery History of laparoscopic cholecystectomy Social History Smoking Status: Never smoker alcohol intake: current alcohol intake frequency: holidays/special occasions only ROS ROS ED ROS Narrative Constitutional: No fever, no chills. HEENT: No sore throat. No neck pain. No loss of vision. No rhinorrhea. Cardiovascular: No chest pain. Positive heart flopping/palpitations. No pedal edema. Respiratory: No cough, no shortness of breath. Abdominal: No abdominal pain. No nausea. No vomiting. Genitourinary: No dysuria. No hematuria. Musculoskeletal: No myalgias. No arthralgias. Neurologic: No headaches. No dizziness. No lightheadedness. Skin: No rash. No change in color. Psychiatric: No depression. No anxiety. EXAM Physical Exam Narrative Exam Narrative: Afebrile. Vital signs noted. HEENT: Normocephalic. Atraumatic. PERRL, EOMI. Neck soft and supple. No point tenderness or step off. Cardiovascular: Regular rate and rhythm with occasional extrasystole. No murmurs, rubs, or gallops appreciated. Respiratory: No tachypnea. Lungs clear to auscultation bilaterally. Gastrointestinal: Abdomen soft, nontender, with normoactive bowel sounds. No rebound or guarding. Neurological: Awake. Alert. Nonfocal, nonlateralizing. Skin: No rash. Normal color. No pallor. Musculoskeletal: No pedal edema. Full range of motion extremities. Const Vital Signs: 07/07/21 15:04 07/07/21 15:14 Temperature 98.2 F Temperature Source Temporal Pulse Rate 91 Respiratory Rate 18 Respiratory Effort Normal Blood Pressure 139/90 H Blood Pressure Mean 106 Pulse Ox 95 Oxygen Delivery Method Room Air MDM MDM MDM Narrative Medical decision making narrative: His EKG demonstrates normal sinus rhythm at 85 bpm with occasional premature ventricular contractions. I will check a CBC, BMP, and magnesium. While he was on the monitor, during the history and physical, he can feel when he has a premature ventricular contraction, and that was a sensation that he described to me. I had a lengthy discussion with him regarding the use of caffeinated products, and limiting them. His laboratory work is grossly unremarkable. He has a normal white count and normal hemoglobin. BMP shows chloride slightly elevated at 109, magnesium normal at 2.6. At this point in time, I feel he can be discharged safely home with follow-up. He will continue his atenolol. He was instructed on reduction of caffeine and will follow-up with his primary care physician. Disposition is discharged home in stable condition. Lab Data Attestation: I reviewed the patient's lab results. Labs: Laboratory Results - last 24 hr 07/07/21 07/07/21 15:20 15:20 WBC 6.8 RBC 5.16 Hgb 15.1 Hct 43.7 MCV 84.7 MCH 29.3 MCHC 34.6 RDW Std Deviation 36.0 RDW Coeff of Lazara 11.9 Plt Count 267 MPV 9.5 Sodium 141 Potassium 3.5 Chloride 109 H Carbon Dioxide 27.0 Anion Gap 5 BUN 17 Creatinine 1.12 Estim Creat Clear Calc 95.27 Est GFR (MDRD) Af Amer 93 Est GFR (MDRD) Non-Af 77 BUN/Creatinine Ratio 15.2 Glucose 102 Calcium 9.1 Magnesium 2.6 Discharge Plan Triage Chief Complaint: Palpitations ED Provider: Rey Perkins Dx/Rx/DC Orders Clinical Impression: Fluttering sensation of heart, PVC (premature ventricular contraction) Instructions: Premature Ventricular Contractions, ED Palpitations Prescriptions: No Action atenolol 25 MG tablet 25 mg PO QHS RF: 0 omeprazole magnesium 20 MG capsule,delayed release(DR/EC) 20 mg PO DAILY RF: 0 Primary Care Provider: Yobani Rosario Referrals: Yobani Rosario MD [Primary Care Provider] - 07/14/21 Disposition Disposition: Home, Self Care
[2021-07-07 15:38] LABS: Hematocrit 43.7 % (40-54); Hemoglobin 15.1 g/dL (13.0-16.5); Mean Corp Hgb Conc 34.6 g/dL (32-36); Mean Corpuscular Hgb 29.3 pg (27.0-32.0); Mean Corpuscular Volume 84.7 fL (80-94); Mean Platelet Vol. 9.5 fl (6.2-12.0); Platelet Count 267 K/mm3 (150-450); RBC Distribution Width CV 11.9 % (11.6-14.6); Red Blood Count 5.16 M/mm3 (4.6-6.2); White Blood Count 6.8 K/mm3 (4.4-11.0)
[2021-07-07 16:09] LABS: Anion Gap 5 (5-15); BUN 17 mg/dL (7-18); BUN/Creat Ratio 15.2 RATIO (10-20); Calcium,Total 9.1 mg/dL (8.5-10.1); Chloride 109 mmol/L (98-107); Creatinine, Serum 1.12 mg/dL (0.70-1.30); EST Glomerular Filtration Rate 77 mL/min (>60); Est Glom Filt Rate - Afr Amer 93 mL/min (>60); Estimated Creatinine Clearance 95.27 ml/min; Glucose 102 mg/dL (74-106); Magnesium 2.6 mg/dL (1.6-2.6); Potassium 3.5 mmol/L (3.5-5.1); Sodium Level 141 mmol/L (136-145)
[2021-07-07 16:21] VITALS: BP 134/86; PULSE 85; RESP 14; TEMP 36.9; O2SAT 98
== END 2021-07-07 16:26 | disposition home or self-care (01) ==
PROVIDERS: Emergency Provider Emergency Medicine; PCP Family Medicine; Visit Provider Emergency Medicine
DX: I49.3 Ventricular premature depolarization (principal); I48.91 Unspecified atrial fibrillation; Z86.010 Personal history of colon polyps; Z79.899 Other long term (current) drug therapy
CPT/HCPCS: 80048; 83735; 85027; 93005; 99283; A4216

== ENCOUNTER 2021-10-22 03:33 | Emergency (ER) | payer OTHER, SELFPAY ==
[2021-10-22 03:34] VITALS: BP 148/85; PULSE 74; RESP 18; TEMP 37.2; O2SAT 98; BMI 33.1
--- NOTE | 2021-10-22 04:09 | RAD_ITS ---
STUDY: X-RAY - CERVICAL SPINE REASON FOR EXAM: Male, 41 years old. neck pain TECHNIQUE: 3 view(s) of the cervical spine were obtained. COMPARISON: None FINDINGS: Normal anterior atlantoaxial articulation. Normal odontoid process. Left C3-C5 moderate neuroforaminal narrowing. Normal cervical lordosis. Normal vertebral bodies and endplates. Normal disc space heights. The soft tissue structures are unremarkable. RAD/Cerv Spine 4 or 5 Views IMPRESSION: No acute fracture or subluxation. Left C3-C5 moderate neuroforaminal narrowing. Electronically Signed: Neftali Garner MD at 5:06 EDT ,
--- NOTE | 2021-10-22 04:09 | EDS_ITS ---
HPI History of Present Illness Chief Complaint: Other, Pain/Inj Narrative Narrative: 41-year-old male presenting with neck pain. He states it was worse yesterday and it started 2 days ago. He was seen by a chiropractor who manipulated his neck yesterday. He states it is actually better today. He woke up with feeling like there is bilateral anterior portions of his neck were sore. He states it feels as if he had been breathing with his mouth open and his throat is dry. He denies dyspepsia. He denies difficulty swallowing or breathing. No fever or chills. He has no paresthesias. [facility] Medical History A-fib GERD (gastroesophageal reflux disease) History of colon polyps Home Medications atenolol 25 mg PO QHS 01/13/19 [History Last Taken Unknown] omeprazole magnesium 20 mg PO DAILY 01/13/19 [History Last Taken Unknown] naproxen [Naprosyn] 500 mg PO BID PRN #20 tab 10/22/21 [Rx Last Taken Unknown] tizanidine [Zanaflex] 4 mg PO QHS PRN #14 cap 10/22/21 [Rx Last Taken Unknown] Allergy/AdvReac Type Severity Reaction Status Date / Time No Known Allergies Allergy Verified 07/07/21 15:03 Surgical History History of appendectomy History of colonoscopy History of hernia surgery History of laparoscopic cholecystectomy Social History Smoking Status: Never smoker alcohol intake: current alcohol intake frequency: holidays/special occasions only ROS ROS ED Constitutional Constitutional ED: Denies chills or fever(s) Eyes Eyes: Denies blurry vision or diplopia ENT ENT ED: Reports sore throat; Denies rhinorrhea Cardiovascular Cardiovascular: Denies chest pain Respiratory/Chest Respiratory/Chest: Denies cough or dyspnea Gastrointestinal Gastrointestinal: Denies abdominal pain or nausea Genitourinary Genitourinary ED: Denies dysuria or hematuria Musculoskeletal Musculoskeletal: Reports neck pain; Denies myalgias Integumentary Denies rash Neurologic Neurologic: Denies headache(s), paresthesias or weakness Psychiatric Psychiatric: Denies anxiety or depression EXAM Physical Exam Const Vital Signs: 10/22/21 03:34 Temperature 98.9 F Temperature Source Temporal Pulse Rate 74 Respiratory Rate 18 Blood Pressure 148/85 H Blood Pressure Mean 106 Pulse Ox 98 Oxygen Delivery Method Room Air Positive well nourished General Appearance ED: NAD; Negative for pallor HEENT Reports moist mucous membranes normocephalic and atraumatic; Negative for trauma Face and Sinus: normal facial exam Nose: external nose normal, nares normal and nasal mucous membranes and turbinates normal External Ear: external ears normal Mouth ED: Yes oral and palatal mucosa normal, Yes lips normal, Yes tongue normal, Yes salivary gland normal, Yes moist mucous membranes normal and No drooling Mouth: oral and palatal mucosa normal, lips normal, tongue normal, salivary gland normal and No drooling Throat: posterior oropharynx normal, tonsils normal and uvula midline Eyes PERRL and EOMs intact bilaterally Neck no lymphadenopathy and supple Resp normal respiratory effort and clear to auscultation bilaterally Cardio regular rate and regular rhythm Back/Spine Cervical Spine: Negative for cervical spine tenderness and other Other Details: Limited range of motion with rotation. Both sides are symmetric. No limitation in flexion extension. Neuro oriented x3 and CN's II-XII intact bilaterally Sensorium / Orientation: alert Psych mental status grossly normal Skin no rashes or lesions noted General Skin Exam: Negative for jaundice or pallor MDM MDM MDM Narrative Medical decision making narrative: Presenting with neck pain which has been ongoing for a few days. He had manipulation done yesterday by his chiropractor and states his pain is actually improved. He has some pain in the anterior neck bilateral on the anterior portions. This is not midline. His oropharynx is patent without stridor. No oropharyngeal erythema or edema. No exudates. I did obtain an x-ray of the cervical spine because of the patient's neck pain and recent manipulation however on my interpretation there are no acute fractures or subluxations. The radiologist does note that there is a left C3-C5 moderate neuroforaminal narrowing. Patient will be given muscle relaxers and anti- inflammatories for home. I will give him follow-up with orthopedic spine. He is given return precautions. Patient stable for discharge at this time. Impression: 1. Cervical strain 2. Neck pain Lab Data Attestation: I reviewed the patient's lab results. Radiography Diagnostic Testing: Clinical Impression(s) from Imaging Studies Cervical Spine X-Ray 10/22/21 04:09 IMPRESSION: No acute fracture or subluxation. Left C3-C5 moderate neuroforaminal narrowing. Electronically Signed: Neftali Garner MD at 5:06 EDT , Discharge Plan Triage Chief Complaint: Other, Pain/Inj ED Provider: Juan Lakhani Dx/Rx/DC Orders Instructions: ED Neck Sprain or Strain Prescriptions: New tizanidine [Zanaflex] 4 mg capsule 4 mg PO QHS PRN (Reason: muscle spasticity) Qty: 14 RF: 0 naproxen [Naprosyn] 500 mg tablet 500 mg PO BID PRN (Reason: pain) Qty: 20 RF: 0 No Action atenolol 25 MG tablet 25 mg PO QHS RF: 0 omeprazole magnesium 20 MG capsule,delayed release(DR/EC) 20 mg PO DAILY RF: 0 Primary Care Provider: Yobani Rosario Referrals: Yobani Rosario MD [Primary Care Provider] - Yobani French DO [STAFF PHYSICIAN] - 3-5 Days Disposition Disposition: Home, Self Care
[2021-10-22 06:01] VITALS: BP 146/80; PULSE 73; RESP 16
== END 2021-10-22 06:02 | disposition home or self-care (01) ==
PROVIDERS: Emergency Provider Student in an Organized Health Care Education/Training Program; PCP Family Medicine; Visit Provider Student in an Organized Health Care Education/Training Program
DX: S16.1XXA Strain of muscle, fascia and tendon at neck level, initial encounter (principal); M48.02 Spinal stenosis, cervical region; X58.XXXA Exposure to other specified factors, initial encounter; I48.91 Unspecified atrial fibrillation; K21.9 Gastro-esophageal reflux disease without esophagitis; Z79.899 Other long term (current) drug therapy; Z86.010 Personal history of colon polyps
CPT/HCPCS: 72050; 99282